=== PATIENT | female | born 1955 | race Hispanic/Latino ===

== ENCOUNTER 2022-01-10 04:52 | Emergency (ER) | payer MEDICARE, OTHER, SELFPAY ==
[2022-01-10] VITALS (60 sets, daily range): BP systolic 109–204; BP diastolic 57–109; PULSE 53–81; RESP 10–20; TEMP 36.4; O2SAT 96–100; BMI 29.2
--- NOTE | 2022-01-10 05:08 | DI.RAD.S_ITS ---
PROCEDURE: XR CHEST 1V INDICATIONS: Chest pain TECHNIQUE: One view of the chest was acquired. COMPARISON: None. FINDINGS: Surgical changes and devices: Median sternotomy wires are seen. Lungs and pleura: Mild pulmonary vascular congestion is seen. No focal infiltrate. No pleural effusions or pneumothorax. Mediastinum: Tortuous thoracic aorta with aortic arch calcifications are noted. Heart size is enlarged. Bones and chest wall: No suspicious bony lesions. Overlying soft tissues appear unremarkable. IMPRESSION: Cardiomegaly and mild congestion. No definite focal infiltrate. No pleural effusion or pneumothorax. No significant discrepancies from preliminary reading. Dictated by: Iftikhar Ann M.D. on 01/10/2022 at 8:11 Approved by: Iftikhar Ann M.D. on 01/10/2022 at 8:13
--- NOTE | 2022-01-10 05:27 | ED.CHESTPAIN ---
HPI - Chest Pain <Jeffry Cordoba, DO - Last Filed: 01/10/22 07:16> General Chief Complaint: Chest Pain Stated Complaint: left shoulder pain Time Seen by Provider: 01/10/22 05:06 Source: patient Mode of arrival: Ambulatory Limitations: no limitations Limitations: no limitations History of Present Illness HPI narrative: Patient is a 66-year-old female. History of hypertension and history of coronary artery disease. She has had a coronary artery bypass graft and that was many years ago and also has had stents placed. She is had left arm pain in the past that has led to her prior coronary interventions. She started to have left-sided shoulder and arm pain several days/weeks ago. Saw her division order analyst. Was given isosorbide and nitroglycerin. They are in the process of getting her a stress test however this has not been scheduled up to this point. She stated that earlier today she started to have shoulder and arm pain that has been consistent. She took 1 nitroglycerin at home without any improvement. No shortness of breath. No cough. No abdominal pain. No nausea vomiting. No lower extremity swelling. Related Data Home Medications Medication Instructions Recorded Confirmed allopurinol 300 mg tablet 300 mg PO DAILY 01/11/22 01/11/22 amlodipine 5 mg tablet 5 mg PO DAILY 01/11/22 01/11/22 aspirin 81 mg capsule 81 mg PO DAILY 01/11/22 01/11/22 atorvastatin 40 mg tablet 40 mg PO BEDTIME 01/11/22 01/11/22 cyanocobalamin (vitamin B-12) 1,000 mcg IM QMONTH 01/11/22 01/11/22 1,000 mcg/mL injection solution furosemide 20 mg tablet 20 mg PO DAILY 01/11/22 01/11/22 isosorbide mononitrate 30 mg 30 mg PO DAILY 01/11/22 01/11/22 tablet,extended release 24 hr nitroglycerin 0.4 mg sublingual 0.4 mg sublingual Q5-15M PRN Chest 01/11/22 01/11/22 tablet Pain potassium chloride 2.5 mEq tablet 10 meq PO DAILY 01/11/22 01/11/22 telmisartan 40 mg tablet 40 mg PO DAILY 01/11/22 01/11/22 Allergies Allergy/AdvReac Type Severity Reaction Status Date / Time benazepril [From Lotensin] Allergy Verified 01/12/22 12:40 hydrochlorothiazide Allergy Verified 01/12/22 12:40 Review of Systems <DO Felicia Chaves Last Filed: 01/10/22 07:16> Constitutional Constitutional: Denies fever(s) Cardiovascular Cardiovascular: Reports as per HPI and Reports system reviewed and no additional complaints, except as documented Respiratory Respiratory: Reports system reviewed and no additional complaints, except as documented Gastrointestinal Gastrointestinal: Reports as per HPI and Reports system reviewed and no additional complaints, except as documented Musculoskeletal Musculoskeletal: Reports system reviewed and no additional complaints, except as documented and Reports as per HPI Integumentary/Breasts Skin/Breast: Reports system reviewed and no additional complaints, except as documented Neurologic Neurologic: Reports system reviewed and no additional complaints, except as documented Hematologic/Lymphatic On Anticoagulants: No Patient History <DO Felicia Chaves Last Filed: 01/10/22 07:16> Medical History Coronary artery disease Hypertension Social History Smoking Status: Never smoker Smoking Status: Never smoker Substance Use Type: does not use Exam <DO Felicia Chaves Last Filed: 01/10/22 07:16> Initial Vital Signs Initial Vital Signs: Vital Signs Temperature 97.5 F L 01/10/22 05:06 Pulse Rate 55 L 01/10/22 05:06 Respiratory Rate 17 01/10/22 05:06 Blood Pressure 185/86 H 01/10/22 05:06 Pulse Oximetry 100 01/10/22 05:06 Oxygen Delivery Method 01/10/22 05:06 Const General: cooperative, healthy appearing, comfortable and No ill appearing [facility] Head: normal to inspection and normocephalic Resp Effort & Inspection: normal respiratory effort Auscultation: clear to auscultation bilaterally Cardio Rate: regular rate Rhythm: regular rhythm GI Palpation: soft Skin General: no rashes or lesions noted Neuro General: patient alert, patient awake, patient oriented x3 and moves all extremities Speech: speech normal Extrem General: normal to inspection and No edema Psych Appearance: grossly normal and well kempt <Cassius Dumont DO - Last Filed: 01/17/22 00:37> Initial Vital Signs Initial Vital Signs: Vital Signs Temperature 97.5 F L 01/10/22 05:06 Pulse Rate 55 L 01/10/22 05:06 Respiratory Rate 17 01/10/22 05:06 Blood Pressure 185/86 H 01/10/22 05:06 Pulse Oximetry 100 01/10/22 05:06 Oxygen Delivery Method 01/10/22 05:06 <Yomaira Dean DO - Last Filed: 01/18/22 08:54> Initial Vital Signs Initial Vital Signs: Vital Signs Temperature 97.5 F L 01/10/22 05:06 Pulse Rate 55 L 01/10/22 05:06 Respiratory Rate 17 01/10/22 05:06 Blood Pressure 185/86 H 01/10/22 05:06 Pulse Oximetry 100 01/10/22 05:06 Oxygen Delivery Method 01/10/22 05:06 <Musa Olmstead MD - Last Filed: 01/12/22 13:47> Initial Vital Signs Initial Vital Signs: Vital Signs Temperature 97.5 F L 01/10/22 05:06 Pulse Rate 55 L 01/10/22 05:06 Respiratory Rate 17 01/10/22 05:06 Blood Pressure 185/86 H 01/10/22 05:06 Pulse Oximetry 100 01/10/22 05:06 Oxygen Delivery Method 01/10/22 05:06 Scores <Jeffry Cordoba DO - Last Filed: 01/10/22 07:16> HEART Score Heart Score history: Moderately Suspicious Heart Score EKG: Non-Specific repolarization disturbance Heart Score Age: > or = 65 years old Heart Score risk factors: > 3 risk factors or hx of atherosclerotic disease Heart Score troponin: < or = to normal limit Heart Score Total: 6 <Cassius Dumont DO - Last Filed: 01/17/22 00:37> HEART Score Heart Score Total: 6 <Yomaira Dean DO - Last Filed: 01/18/22 08:54> HEART Score Heart Score Total: 6 <Musa Olmstead MD - Last Filed: 01/12/22 13:47> HEART Score Heart Score Total: 6 Course <DO Felicia Chaves Last Filed: 01/10/22 07:16> Orders Ordered: Discontinued Medications Amlodipine Besylate (Amlodipine 5 Mg Tablet) 5 mg PO NOW ONE Stop: 01/12/22 11:37 Last Admin: 01/12/22 12:08 Dose: 5 mg Documented By: MADHAVI Aspirin (Aspirin 81 Mg Chew Tab) 324 mg PO NOW ONE Stop: 01/10/22 05:27 Last Admin: 01/10/22 05:40 Dose: 324 mg Documented By: DOMINGO Aspirin (Aspirin 81 Mg Chew Tab) 324 mg PO NOW ONE Stop: 01/10/22 09:34 Last Admin: 01/10/22 10:17 Dose: 324 mg Documented By: NAIF Aspirin (Aspirin Ec 81 Mg Tablet) 81 mg PO NOW ONE Stop: 01/11/22 08:56 Last Admin: 01/11/22 10:01 Dose: 81 mg Documented By: JAMILA Aspirin (Aspirin Ec 81 Mg Tablet) 81 mg PO NOW ONE Stop: 01/12/22 09:54 Last Admin: 01/12/22 10:24 Dose: 81 mg Documented By: MADHAVI Atorvastatin Calcium (Atorvastatin 20 Mg Tablet) 80 mg PO BEDTIME [facility] Last Admin: 01/11/22 20:25 Dose: 40 mg Documented By: Admin: 01/10/22 22:07 Dose: 80 mg Documented By: BURT Atorvastatin Calcium (Atorvastatin 20 Mg Tablet) 40 mg PO NOW ONE Stop: 01/11/22 08:56 Last Admin: 01/11/22 10:02 Dose: 40 mg Documented By: JAMILA Clopidogrel Bisulfate (Clopidogrel 75 Mg Tablet) 75 mg PO NOW ONE Stop: 01/12/22 09:54 Last Admin: 01/12/22 10:24 Dose: 75 mg Documented By: MADHAVI Furosemide (Furosemide 20 Mg Tablet) 20 mg PO NOW ONE Stop: 01/12/22 11:37 Last Admin: 01/12/22 12:08 Dose: 20 mg Documented By: MADHAVI Heparin Sodium (Porcine) (Heparin 5,000 Unit/Ml Vial) 4,000 unit IV NOW ONE Stop: 01/10/22 09:34 Last Admin: 01/10/22 10:15 Dose: 4,000 unit Documented By: NAIF Sodium Chloride (Normal Saline 0.9%) 1,000 mls @ 125 mls/hr IV CONT JORDAN Last Infusion: 01/10/22 18:01 Dose: 0 mls/hr Documented By: Admin: 01/10/22 05:40 Dose: 125 mls/hr Documented By: DOMINGO Heparin Sodium/Dextrose (Heparin Drip) 25,000 unit in 500 mls @ 16.329 mls/hr IV CONT JORDAN; Protocol Last Admin: 01/12/22 02:55 Dose: 9.04 units/kg/hr, 12.3 mls/hr Documented By: Titration: 01/12/22 02:54 Dose: 0 units/kg/hr, 0 mls/hr Documented By: Titration: 01/11/22 00:28 Dose: 9.06 units/kg/hr, 12.329 mls/hr Documented By: Titration: 01/10/22 19:48 Dose: 9.8 units/kg/hr, 13.329 mls/hr Documented By: Titration: 01/10/22 18:38 Dose: 12 units/kg/hr, 16.329 mls/hr Documented By: Admin: 01/10/22 10:15 Dose: 12 units/kg/hr, 16.329 mls/hr Documented By: NAIF Isosorbide Mononitrate (Isosorbide Mononitrate Er 30 Mg Tablet) 30 mg PO NOW ONE Stop: 01/12/22 11:37 Last Admin: 01/12/22 12:08 Dose: 30 mg Documented By: MADHAVI Losartan Potassium (Losartan 50 Mg Tablet) 50 mg PO NOW ONE Stop: 01/12/22 11:39 Last Admin: 01/12/22 12:09 Dose: 50 mg Documented By: MADHAVI Metoprolol Tartrate (Metoprolol Ir 25 Mg Tablet) 12.5 mg PO NOW ONE Stop: 01/12/22 09:54 Last Admin: 01/12/22 10:25 Dose: 12.5 mg Documented By: MADHAVI Morphine Sulfate (Morphine 4 Mg/Ml Inj) 4 mg IV NOW ONE Stop: 01/10/22 06:12 Last Admin: 01/10/22 06:15 Dose: 4 mg Documented By: DOMINGO Morphine Sulfate (Morphine 4 Mg/Ml Inj) 4 mg IV NOW ONE Stop: 01/10/22 21:12 Last Admin: 01/10/22 21:17 Dose: 4 mg Documented By: BURT Morphine Sulfate (Morphine 2 Mg/Ml Inj) 2 mg IV Q5MIN PRN PRN Reason: Chest Pain Last Admin: 01/12/22 03:27 Dose: 2 mg Documented By: Admin: 01/11/22 05:59 Dose: 2 mg Documented By: ANDREY Morphine Sulfate (Morphine 4 Mg/Ml Inj) 4 mg IV NOW ONE Stop: 01/11/22 05:52 Last Admin: 01/11/22 06:56 Dose: Not Given Documented By: DOMINGO Naloxone HCl (Naloxone 0.4 Mg/Ml Vial) 0.2 mg IV Q2MIN PRN PRN Reason: Opiate Reversal Nitroglycerin (Nitroglycerin Oint 1 Inch/Gm Oint...G.) 0.5 inch TOP NOW ONE Stop: 01/10/22 05:27 Last Admin: 01/10/22 05:39 Dose: 0.5 inch Documented By: DOMINGO Nitroglycerin (Nitroglycerin Oint 1 Inch/Gm Oint...G.) 0.5 inch TOP NOW ONE Stop: 01/10/22 20:50 Last Admin: 01/10/22 20:52 Dose: 0.5 inch Documented By: BURT Potassium Chloride (Potassium Chloride 10 Meq Tab) 10 meq PO NOW ONE Stop: 01/12/22 11:38 Last Admin: 01/12/22 12:08 Dose: 10 meq Documented By: MADHAVI Vital Signs Vital signs: Vital Signs - 8 hr 01/12/22 06:00 01/12/22 06:30 01/12/22 07:00 Temperature Pulse Rate 54 L 50 L 54 L Respiratory Rate 13 13 14 Blood Pressure Pulse Oximetry 95 96 98 01/12/22 07:30 01/12/22 07:35 01/12/22 07:35 Temperature Pulse Rate 50 L 58 L Respiratory Rate 12 12 Blood Pressure 170/78 H Pulse Oximetry 96 98 01/12/22 08:00 01/12/22 08:04 01/12/22 08:01 Temperature 99.1 F Pulse Rate 57 L Respiratory Rate 12 Blood Pressure 161/72 H Pulse Oximetry 95 01/12/22 09:00 01/12/22 09:30 01/12/22 10:00 Temperature Pulse Rate 61 63 61 Respiratory Rate 20 14 19 Blood Pressure Pulse Oximetry 99 98 98 01/12/22 10:01 01/12/22 12:09 01/12/22 11:00 Temperature Pulse Rate 60 63 Respiratory Rate 27 H Blood Pressure 156/73 H 156/73 H Pulse Oximetry 98 01/12/22 11:00 01/12/22 12:15 01/12/22 12:15 Temperature Pulse Rate 63 57 L Respiratory Rate 19 20 Blood Pressure 130/62 Pulse Oximetry 98 98 01/12/22 12:30 01/12/22 13:00 Temperature Pulse Rate 53 L 64 Respiratory Rate 23 32 H Blood Pressure Pulse Oximetry 98 <Cassius Dumont DO - Last Filed: 01/17/22 00:37> Orders Ordered: Discontinued Medications Amlodipine Besylate (Amlodipine 5 Mg Tablet) 5 mg PO NOW ONE Stop: 01/12/22 11:37 Last Admin: 01/12/22 12:08 Dose: 5 mg Documented By: MADHAVI Aspirin (Aspirin 81 Mg Chew Tab) 324 mg PO NOW ONE Stop: 01/10/22 05:27 Last Admin: 01/10/22 05:40 Dose: 324 mg Documented By: DOMINGO Aspirin (Aspirin 81 Mg Chew Tab) 324 mg PO NOW ONE Stop: 01/10/22 09:34 Last Admin: 01/10/22 10:17 Dose: 324 mg Documented By: NAIF Aspirin (Aspirin Ec 81 Mg Tablet) 81 mg PO NOW ONE Stop: 01/11/22 08:56 Last Admin: 01/11/22 10:01 Dose: 81 mg Documented By: JAMILA Aspirin (Aspirin Ec 81 Mg Tablet) 81 mg PO NOW ONE Stop: 01/12/22 09:54 Last Admin: 01/12/22 10:24 Dose: 81 mg Documented By: MADHAVI Atorvastatin Calcium (Atorvastatin 20 Mg Tablet) 80 mg PO BEDTIME [facility] Last Admin: 01/11/22 20:25 Dose: 40 mg Documented By: Admin: 01/10/22 22:07 Dose: 80 mg Documented By: BURT Atorvastatin Calcium (Atorvastatin 20 Mg Tablet) 40 mg PO NOW ONE Stop: 01/11/22 08:56 Last Admin: 01/11/22 10:02 Dose: 40 mg Documented By: JAMILA Clopidogrel Bisulfate (Clopidogrel 75 Mg Tablet) 75 mg PO NOW ONE Stop: 01/12/22 09:54 Last Admin: 01/12/22 10:24 Dose: 75 mg Documented By: MADHAVI Furosemide (Furosemide 20 Mg Tablet) 20 mg PO NOW ONE Stop: 01/12/22 11:37 Last Admin: 01/12/22 12:08 Dose: 20 mg Documented By: MADHAVI Heparin Sodium (Porcine) (Heparin 5,000 Unit/Ml Vial) 4,000 unit IV NOW ONE Stop: 01/10/22 09:34 Last Admin: 01/10/22 10:15 Dose: 4,000 unit Documented By: NAIF Sodium Chloride (Normal Saline 0.9%) 1,000 mls @ 125 mls/hr IV CONT JORDAN Last Infusion: 01/10/22 18:01 Dose: 0 mls/hr Documented By: Admin: 01/10/22 05:40 Dose: 125 mls/hr Documented By: DOMINGO Heparin Sodium/Dextrose (Heparin Drip) 25,000 unit in 500 mls @ 16.329 mls/hr IV CONT JORDAN; Protocol Last Admin: 01/12/22 02:55 Dose: 9.04 units/kg/hr, 12.3 mls/hr Documented By: Titration: 01/12/22 02:54 Dose: 0 units/kg/hr, 0 mls/hr Documented By: Titration: 01/11/22 00:28 Dose: 9.06 units/kg/hr, 12.329 mls/hr Documented By: Titration: 01/10/22 19:48 Dose: 9.8 units/kg/hr, 13.329 mls/hr Documented By: Titration: 01/10/22 18:38 Dose: 12 units/kg/hr, 16.329 mls/hr Documented By: Admin: 01/10/22 10:15 Dose: 12 units/kg/hr, 16.329 mls/hr Documented By: NAIF Isosorbide Mononitrate (Isosorbide Mononitrate Er 30 Mg Tablet) 30 mg PO NOW ONE Stop: 01/12/22 11:37 Last Admin: 01/12/22 12:08 Dose: 30 mg Documented By: MADHAVI Losartan Potassium (Losartan 50 Mg Tablet) 50 mg PO NOW ONE Stop: 01/12/22 11:39 Last Admin: 01/12/22 12:09 Dose: 50 mg Documented By: MADHAVI Metoprolol Tartrate (Metoprolol Ir 25 Mg Tablet) 12.5 mg PO NOW ONE Stop: 01/12/22 09:54 Last Admin: 01/12/22 10:25 Dose: 12.5 mg Documented By: MADHAVI Morphine Sulfate (Morphine 4 Mg/Ml Inj) 4 mg IV NOW ONE Stop: 01/10/22 06:12 Last Admin: 01/10/22 06:15 Dose: 4 mg Documented By: DKB Morphine Sulfate (Morphine 4 Mg/Ml Inj) 4 mg IV NOW ONE Stop: 01/10/22 21:12 Last Admin: 01/10/22 21:17 Dose: 4 mg Documented By: BURT Morphine Sulfate (Morphine 2 Mg/Ml Inj) 2 mg IV Q5MIN PRN PRN Reason: Chest Pain Last Admin: 01/12/22 03:27 Dose: 2 mg Documented By: Admin: 01/11/22 05:59 Dose: 2 mg Documented By: ANDREY Morphine Sulfate (Morphine 4 Mg/Ml Inj) 4 mg IV NOW ONE Stop: 01/11/22 05:52 Last Admin: 01/11/22 06:56 Dose: Not Given Documented By: DOMINGO Naloxone HCl (Naloxone 0.4 Mg/Ml Vial) 0.2 mg IV Q2MIN PRN PRN Reason: Opiate Reversal Nitroglycerin (Nitroglycerin Oint 1 Inch/Gm Oint...G.) 0.5 inch TOP NOW ONE Stop: 01/10/22 05:27 Last Admin: 01/10/22 05:39 Dose: 0.5 inch Documented By: DOMINGO Nitroglycerin (Nitroglycerin Oint 1 Inch/Gm Oint...G.) 0.5 inch TOP NOW ONE Stop: 01/10/22 20:50 Last Admin: 01/10/22 20:52 Dose: 0.5 inch Documented By: BURT Potassium Chloride (Potassium Chloride 10 Meq Tab) 10 meq PO NOW ONE Stop: 01/12/22 11:38 Last Admin: 01/12/22 12:08 Dose: 10 meq Documented By: MADHAVI Vital Signs Vital signs: Vital Signs - 8 hr 01/12/22 06:00 01/12/22 06:30 01/12/22 07:00 Temperature Pulse Rate 54 L 50 L 54 L Respiratory Rate 13 13 14 Blood Pressure Pulse Oximetry 95 96 98 01/12/22 07:30 01/12/22 07:35 01/12/22 07:35 Temperature Pulse Rate 50 L 58 L Respiratory Rate 12 12 Blood Pressure 170/78 H Pulse Oximetry 96 98 01/12/22 08:00 01/12/22 08:04 01/12/22 08:01 Temperature 99.1 F Pulse Rate 57 L Respiratory Rate 12 Blood Pressure 161/72 H Pulse Oximetry 95 01/12/22 09:00 01/12/22 09:30 01/12/22 10:00 Temperature Pulse Rate 61 63 61 Respiratory Rate 20 14 19 Blood Pressure Pulse Oximetry 99 98 98 01/12/22 10:01 01/12/22 12:09 01/12/22 11:00 Temperature Pulse Rate 60 63 Respiratory Rate 27 H Blood Pressure 156/73 H 156/73 H Pulse Oximetry 98 01/12/22 11:00 01/12/22 12:15 01/12/22 12:15 Temperature Pulse Rate 63 57 L Respiratory Rate 19 20 Blood Pressure 130/62 Pulse Oximetry 98 98 01/12/22 12:30 01/12/22 13:00 Temperature Pulse Rate 53 L 64 Respiratory Rate 23 32 H Blood Pressure Pulse Oximetry 98 <Yomaira Dean, - Last Filed: 01/18/22 08:54> Orders Ordered: Discontinued Medications Amlodipine Besylate (Amlodipine 5 Mg Tablet) 5 mg PO NOW ONE Stop: 01/12/22 11:37 Last Admin: 01/12/22 12:08 Dose: 5 mg Documented By: MADHAVI Aspirin (Aspirin 81 Mg Chew Tab) 324 mg PO NOW ONE Stop: 01/10/22 05:27 Last Admin: 01/10/22 05:40 Dose: 324 mg Documented By: DOMINGO Aspirin (Aspirin 81 Mg Chew Tab) 324 mg PO NOW ONE Stop: 01/10/22 09:34 Last Admin: 01/10/22 10:17 Dose: 324 mg Documented By: NAIF Aspirin (Aspirin Ec 81 Mg Tablet) 81 mg PO NOW ONE Stop: 01/11/22 08:56 Last Admin: 01/11/22 10:01 Dose: 81 mg Documented By: JAMILA Aspirin (Aspirin Ec 81 Mg Tablet) 81 mg PO NOW ONE Stop: 01/12/22 09:54 Last Admin: 01/12/22 10:24 Dose: 81 mg Documented By: MADHAVI Atorvastatin Calcium (Atorvastatin 20 Mg Tablet) 80 mg PO BEDTIME [facility] Last Admin: 01/11/22 20:25 Dose: 40 mg Documented By: Admin: 01/10/22 22:07 Dose: 80 mg Documented By: NR Atorvastatin Calcium (Atorvastatin 20 Mg Tablet) 40 mg PO NOW ONE Stop: 01/11/22 08:56 Last Admin: 01/11/22 10:02 Dose: 40 mg Documented By: JAMILA Clopidogrel Bisulfate (Clopidogrel 75 Mg Tablet) 75 mg PO NOW ONE Stop: 01/12/22 09:54 Last Admin: 01/12/22 10:24 Dose: 75 mg Documented By: MADHAVI Furosemide (Furosemide 20 Mg Tablet) 20 mg PO NOW ONE Stop: 01/12/22 11:37 Last Admin: 01/12/22 12:08 Dose: 20 mg Documented By: MADHAVI Heparin Sodium (Porcine) (Heparin 5,000 Unit/Ml Vial) 4,000 unit IV NOW ONE Stop: 01/10/22 09:34 Last Admin: 01/10/22 10:15 Dose: 4,000 unit Documented By: NAIF Sodium Chloride (Normal Saline 0.9%) 1,000 mls @ 125 mls/hr IV CONT JORDAN Last Infusion: 01/10/22 18:01 Dose: 0 mls/hr Documented By: Admin: 01/10/22 05:40 Dose: 125 mls/hr Documented By: DOMINGO Heparin Sodium/Dextrose (Heparin Drip) 25,000 unit in 500 mls @ 16.329 mls/hr IV CONT JORDAN; Protocol Last Admin: 01/12/22 02:55 Dose: 9.04 units/kg/hr, 12.3 mls/hr Documented By: Titration: 01/12/22 02:54 Dose: 0 units/kg/hr, 0 mls/hr Documented By: Titration: 01/11/22 00:28 Dose: 9.06 units/kg/hr, 12.329 mls/hr Documented By: Titration: 01/10/22 19:48 Dose: 9.8 units/kg/hr, 13.329 mls/hr Documented By: Titration: 01/10/22 18:38 Dose: 12 units/kg/hr, 16.329 mls/hr Documented By: Admin: 01/10/22 10:15 Dose: 12 units/kg/hr, 16.329 mls/hr Documented By: NAIF Isosorbide Mononitrate (Isosorbide Mononitrate Er 30 Mg Tablet) 30 mg PO NOW ONE Stop: 01/12/22 11:37 Last Admin: 01/12/22 12:08 Dose: 30 mg Documented By: MADHAVI Losartan Potassium (Losartan 50 Mg Tablet) 50 mg PO NOW ONE Stop: 01/12/22 11:39 Last Admin: 01/12/22 12:09 Dose: 50 mg Documented By: MADHAVI Metoprolol Tartrate (Metoprolol Ir 25 Mg Tablet) 12.5 mg PO NOW ONE Stop: 01/12/22 09:54 Last Admin: 01/12/22 10:25 Dose: 12.5 mg Documented By: MADHAVI Morphine Sulfate (Morphine 4 Mg/Ml Inj) 4 mg IV NOW ONE Stop: 01/10/22 06:12 Last Admin: 01/10/22 06:15 Dose: 4 mg Documented By: DOMINGO Morphine Sulfate (Morphine 4 Mg/Ml Inj) 4 mg IV NOW ONE Stop: 01/10/22 21:12 Last Admin: 01/10/22 21:17 Dose: 4 mg Documented By: NR Morphine Sulfate (Morphine 2 Mg/Ml Inj) 2 mg IV Q5MIN PRN PRN Reason: Chest Pain Last Admin: 01/12/22 03:27 Dose: 2 mg Documented By: Admin: 01/11/22 05:59 Dose: 2 mg Documented By: EB Morphine Sulfate (Morphine 4 Mg/Ml Inj) 4 mg IV NOW ONE Stop: 01/11/22 05:52 Last Admin: 01/11/22 06:56 Dose: Not Given Documented By: DOMINGO Naloxone HCl (Naloxone 0.4 Mg/Ml Vial) 0.2 mg IV Q2MIN PRN PRN Reason: Opiate Reversal Nitroglycerin (Nitroglycerin Oint 1 Inch/Gm Oint...G.) 0.5 inch TOP NOW ONE Stop: 01/10/22 05:27 Last Admin: 01/10/22 05:39 Dose: 0.5 inch Documented By: DOMINGO Nitroglycerin (Nitroglycerin Oint 1 Inch/Gm Oint...G.) 0.5 inch TOP NOW ONE Stop: 01/10/22 20:50 Last Admin: 01/10/22 20:52 Dose: 0.5 inch Documented By: NR Potassium Chloride (Potassium Chloride 10 Meq Tab) 10 meq PO NOW ONE Stop: 01/12/22 11:38 Last Admin: 01/12/22 12:08 Dose: 10 meq Documented By: MADHAVI Reevaluation(s) Reevaluation #1: Patient chest pain had recurred. She states initially improved after morphine and not nitro. Nitro placed again and patient given dose of morphine and improved symptoms. Vital Signs Vital signs: Vital Signs - 8 hr 01/12/22 06:00 01/12/22 06:30 01/12/22 07:00 Temperature Pulse Rate 54 L 50 L 54 L Respiratory Rate 13 13 14 Blood Pressure Pulse Oximetry 95 96 98 01/12/22 07:30 01/12/22 07:35 01/12/22 07:35 Temperature Pulse Rate 50 L 58 L Respiratory Rate 12 12 Blood Pressure 170/78 H Pulse Oximetry 96 98 01/12/22 08:00 01/12/22 08:04 01/12/22 08:01 Temperature 99.1 F Pulse Rate 57 L Respiratory Rate 12 Blood Pressure 161/72 H Pulse Oximetry 95 01/12/22 09:00 01/12/22 09:30 01/12/22 10:00 Temperature Pulse Rate 61 63 61 Respiratory Rate 20 14 19 Blood Pressure Pulse Oximetry 99 98 98 01/12/22 10:01 01/12/22 12:09 01/12/22 11:00 Temperature Pulse Rate 60 63 Respiratory Rate 27 H Blood Pressure 156/73 H 156/73 H Pulse Oximetry 98 01/12/22 11:00 01/12/22 12:15 01/12/22 12:15 Temperature Pulse Rate 63 57 L Respiratory Rate 19 20 Blood Pressure 130/62 Pulse Oximetry 98 98 01/12/22 12:30 01/12/22 13:00 Temperature Pulse Rate 53 L 64 Respiratory Rate 23 32 H Blood Pressure Pulse Oximetry 98 <uMsa Olmstead MD - Last Filed: 01/12/22 13:47> Orders Ordered: Discontinued Medications Amlodipine Besylate (Amlodipine 5 Mg Tablet) 5 mg PO NOW ONE Stop: 01/12/22 11:37 Last Admin: 01/12/22 12:08 Dose: 5 mg Documented By: MADHAVI Aspirin (Aspirin 81 Mg Chew Tab) 324 mg PO NOW ONE Stop: 01/10/22 05:27 Last Admin: 01/10/22 05:40 Dose: 324 mg Documented By: DOMINGO Aspirin (Aspirin 81 Mg Chew Tab) 324 mg PO NOW ONE Stop: 01/10/22 09:34 Last Admin: 01/10/22 10:17 Dose: 324 mg Documented By: NAIF Aspirin (Aspirin Ec 81 Mg Tablet) 81 mg PO NOW ONE Stop: 01/11/22 08:56 Last Admin: 01/11/22 10:01 Dose: 81 mg Documented By: CTS Aspirin (Aspirin Ec 81 Mg Tablet) 81 mg PO NOW ONE Stop: 01/12/22 09:54 Last Admin: 01/12/22 10:24 Dose: 81 mg Documented By: MADHAVI Atorvastatin Calcium (Atorvastatin 20 Mg Tablet) 80 mg PO BEDTIME [facility] Last Admin: 01/11/22 20:25 Dose: 40 mg Documented By: Admin: 01/10/22 22:07 Dose: 80 mg Documented By: NR Atorvastatin Calcium (Atorvastatin 20 Mg Tablet) 40 mg PO NOW ONE Stop: 01/11/22 08:56 Last Admin: 01/11/22 10:02 Dose: 40 mg Documented By: CTS Clopidogrel Bisulfate (Clopidogrel 75 Mg Tablet) 75 mg PO NOW ONE Stop: 01/12/22 09:54 Last Admin: 01/12/22 10:24 Dose: 75 mg Documented By: RLS Furosemide (Furosemide 20 Mg Tablet) 20 mg PO NOW ONE Stop: 01/12/22 11:37 Last Admin: 01/12/22 12:08 Dose: 20 mg Documented By: MADHAVI Heparin Sodium (Porcine) (Heparin 5,000 Unit/Ml Vial) 4,000 unit IV NOW ONE Stop: 01/10/22 09:34 Last Admin: 01/10/22 10:15 Dose: 4,000 unit Documented By: NAIF Sodium Chloride (Normal Saline 0.9%) 1,000 mls @ 125 mls/hr IV CONT JORDAN Last Infusion: 01/10/22 18:01 Dose: 0 mls/hr Documented By: Admin: 01/10/22 05:40 Dose: 125 mls/hr Documented By: DOMINGO Heparin Sodium/Dextrose (Heparin Drip) 25,000 unit in 500 mls @ 16.329 mls/hr IV CONT J[place]; Protocol Last Admin: 01/12/22 02:55 Dose: 9.04 units/kg/hr, 12.3 mls/hr Documented By: Titration: 01/12/22 02:54 Dose: 0 units/kg/hr, 0 mls/hr Documented By: Titration: 01/11/22 00:28 Dose: 9.06 units/kg/hr, 12.329 mls/hr Documented By: Titration: 01/10/22 19:48 Dose: 9.8 units/kg/hr, 13.329 mls/hr Documented By: Titration: 01/10/22 18:38 Dose: 12 units/kg/hr, 16.329 mls/hr Documented By: Admin: 01/10/22 10:15 Dose: 12 units/kg/hr, 16.329 mls/hr Documented By: NAIF Isosorbide Mononitrate (Isosorbide Mononitrate Er 30 Mg Tablet) 30 mg PO NOW ONE Stop: 01/12/22 11:37 Last Admin: 01/12/22 12:08 Dose: 30 mg Documented By: MADHAVI Losartan Potassium (Losartan 50 Mg Tablet) 50 mg PO NOW ONE Stop: 01/12/22 11:39 Last Admin: 01/12/22 12:09 Dose: 50 mg Documented By: MADHAVI Metoprolol Tartrate (Metoprolol Ir 25 Mg Tablet) 12.5 mg PO NOW ONE Stop: 01/12/22 09:54 Last Admin: 01/12/22 10:25 Dose: 12.5 mg Documented By: MADHAVI Morphine Sulfate (Morphine 4 Mg/Ml Inj) 4 mg IV NOW ONE Stop: 01/10/22 06:12 Last Admin: 01/10/22 06:15 Dose: 4 mg Documented By: DOMINGO Morphine Sulfate (Morphine 4 Mg/Ml Inj) 4 mg IV NOW ONE Stop: 01/10/22 21:12 Last Admin: 01/10/22 21:17 Dose: 4 mg Documented By: BURT Morphine Sulfate (Morphine 2 Mg/Ml Inj) 2 mg IV Q5MIN PRN PRN Reason: Chest Pain Last Admin: 01/12/22 03:27 Dose: 2 mg Documented By: Admin: 01/11/22 05:59 Dose: 2 mg Documented By: ANDREY Morphine Sulfate (Morphine 4 Mg/Ml Inj) 4 mg IV NOW ONE Stop: 01/11/22 05:52 Last Admin: 01/11/22 06:56 Dose: Not Given Documented By: DOMINGO Naloxone HCl (Naloxone 0.4 Mg/Ml Vial) 0.2 mg IV Q2MIN PRN PRN Reason: Opiate Reversal Nitroglycerin (Nitroglycerin Oint 1 Inch/Gm Oint...G.) 0.5 inch TOP NOW ONE Stop: 01/10/22 05:27 Last Admin: 01/10/22 05:39 Dose: 0.5 inch Documented By: DOMINGO Nitroglycerin (Nitroglycerin Oint 1 Inch/Gm Oint...G.) 0.5 inch TOP NOW ONE Stop: 01/10/22 20:50 Last Admin: 01/10/22 20:52 Dose: 0.5 inch Documented By: BURT Potassium Chloride (Potassium Chloride 10 Meq Tab) 10 meq PO NOW ONE Stop: 01/12/22 11:38 Last Admin: 01/12/22 12:08 Dose: 10 meq Documented By: MADHAVI Vital Signs Vital signs: Vital Signs - 8 hr 01/12/22 06:00 01/12/22 06:30 01/12/22 07:00 Temperature Pulse Rate 54 L 50 L 54 L Respiratory Rate 13 13 14 Blood Pressure Pulse Oximetry 95 96 98 01/12/22 07:30 01/12/22 07:35 01/12/22 07:35 Temperature Pulse Rate 50 L 58 L Respiratory Rate 12 12 Blood Pressure 170/78 H Pulse Oximetry 96 98 01/12/22 08:00 01/12/22 08:04 01/12/22 08:01 Temperature 99.1 F Pulse Rate 57 L Respiratory Rate 12 Blood Pressure 161/72 H Pulse Oximetry 95 01/12/22 09:00 01/12/22 09:30 01/12/22 10:00 Temperature Pulse Rate 61 63 61 Respiratory Rate 20 14 19 Blood Pressure Pulse Oximetry 99 98 98 01/12/22 10:01 01/12/22 12:09 01/12/22 11:00 Temperature Pulse Rate 60 63 Respiratory Rate 27 H Blood Pressure 156/73 H 156/73 H Pulse Oximetry 98 01/12/22 11:00 01/12/22 12:15 01/12/22 12:15 Temperature Pulse Rate 63 57 L Respiratory Rate 19 20 Blood Pressure 130/62 Pulse Oximetry 98 98 01/12/22 12:30 01/12/22 13:00 Temperature Pulse Rate 53 L 64 Respiratory Rate 23 32 H Blood Pressure Pulse Oximetry 98 MDM - Chest Pain <Jeffry Cordoba DO - Last Filed: 01/10/22 07:16> Lab Data Attestation: I reviewed the patient's lab results. Result diagrams: 01/12/22 05:56 01/12/22 05:56 Labs: Lab Results 01/10/22 01/10/22 01/10/22 Range/Units 05:21 05:21 05:26 WBC 9.2 (4.5-11.0) X10^3/uL RBC 4.33 (4.0-5.2) X10^6/uL Hgb 13.5 (12.0-16.0) g/dL Hct 40.0 (36-46) % MCV 92.3 (80-100) fL MCH 31.3 (26-34) PG MCHC 33.9 (30-36) % RDW 14.3 (11.6-14.8) % Plt Count 211 (150-400) X10^3/uL Neut % (Auto) 76.9 H (50-75) % Lymph % (Auto) 17.1 L (25-40) % [place] % (Auto) 4.6 (3-14) % Eos % (Auto) 1.0 L (2-4) % Baso % (Auto) 0.4 (0-2) % Neut # (Auto) 7100 H (8101-0136) /uL Lymph # (Auto) 1600 (8480-3909) /uL [place] # (Auto) 400 (0-900) /uL Eos # (Auto) 100 (0-450) /uL Baso # (Auto) 0 (0-100) /uL PT 12.1 (10.1-12.7) SECONDS INR 1.1 (0.9-1.3) APTT 30 (26.4-36.2) SECONDS D-Dimer (<230) ng/mL Sodium (137-145) mmol/L Potassium (3.4-5.1) mmol/L Chloride (98-107) mmol/L Carbon Dioxide (22-32) mmol/L BUN (7-17) mg/dL Creatinine (0.52-1.04) mg/dL Estimated GFR (>60) mL/min BUN/Creatinine Ratio (6-22) Glucose (80-110) mg/dL Calcium (8.4-10.2) mg/dL Magnesium (1.6-2.3) mg/dL Total Bilirubin (0.2-1.3) mg/dL AST (14-36) IU/L ALT (<35) IU/L Alkaline Phosphatase (38-126) U/L Total Creatine Kinase (30-135) U/L CK-MB (CK-2) (<2.37) ng/mL CK-MB (CK-2) Rel Index (1.5-5.0) % Troponin I (0.01-0.034) ng/mL Total Protein (6.3-8.2) g/dL Albumin (3.5-5.0) g/dL Globulin (1.7-4.1) g/dL Albumin/Globulin Ratio (1.0-2.8) Lipase (23-300) U/L SARS-CoV-2 (PCR) Positive H (Negative) 01/10/22 01/10/22 01/10/22 Range/Units 05:56 05:56 08:05 WBC (4.5-11.0) X10^3/uL RBC (4.0-5.2) X10^6/uL Hgb (12.0-16.0) g/dL Hct (36-46) % MCV (80-100) fL MCH (26-34) PG MCHC (30-36) % RDW (11.6-14.8) % Plt Count (150-400) X10^3/uL Neut % (Auto) (50-75) % Lymph % (Auto) (25-40) % [place] % (Auto) (3-14) % Eos % (Auto) (2-4) % Baso % (Auto) (0-2) % Neut # (Auto) (0709-5760) /uL Lymph # (Auto) (5790-8598) /uL [place] # (Auto) (0-900) /uL Eos # (Auto) (0-450) /uL Baso # (Auto) (0-100) /uL PT (10.1-12.7) SECONDS INR (0.9-1.3) APTT (26.4-36.2) SECONDS D-Dimer (<230) ng/mL Sodium 138 (137-145) mmol/L Potassium 3.5 (3.4-5.1) mmol/L Chloride 100 (98-107) mmol/L Carbon Dioxide 28 (22-32) mmol/L BUN 14 (7-17) mg/dL Creatinine 0.79 (0.52-1.04) mg/dL Estimated GFR > 60 (>60) mL/min BUN/Creatinine Ratio 17.7 (6-22) Glucose 210 H (80-110) mg/dL Calcium 8.5 (8.4-10.2) mg/dL Magnesium 2.0 (1.6-2.3) mg/dL Total Bilirubin 0.4 (0.2-1.3) mg/dL AST 34 (14-36) IU/L ALT 31 (<35) IU/L Alkaline Phosphatase 64 (38-126) U/L Total Creatine Kinase 123 119 (30-135) U/L CK-MB (CK-2) 1.11 2.47 H D (<2.37) ng/mL CK-MB (CK-2) Rel Index 0.9 L 2.1 (1.5-5.0) % Troponin I 0.039 H 0.115 H (0.01-0.034) ng/mL Total Protein 7.7 (6.3-8.2) g/dL Albumin 4.2 (3.5-5.0) g/dL Globulin 3.5 (1.7-4.1) g/dL Albumin/Globulin Ratio 1.2 (1.0-2.8) Lipase 61 (23-300) U/L SARS-CoV-2 (PCR) (Negative) 01/10/22 01/10/22 01/10/22 Range/Units 10:12 17:35 21:20 WBC (4.5-11.0) X10^3/uL RBC (4.0-5.2) X10^6/uL Hgb (12.0-16.0) g/dL Hct (36-46) % MCV (80-100) fL MCH (26-34) PG MCHC (30-36) % RDW (11.6-14.8) % Plt Count (150-400) X10^3/uL Neut % (Auto) (50-75) % Lymph % (Auto) (25-40) % [place] % (Auto) (3-14) % Eos % (Auto) (2-4) % Baso % (Auto) (0-2) % Neut # (Auto) (7989-5726) /uL Lymph # (Auto) (8217-4894) /uL [place] # (Auto) (0-900) /uL Eos # (Auto) (0-450) /uL Baso # (Auto) (0-100) /uL PT (10.1-12.7) SECONDS INR (0.9-1.3) APTT 33 138 H* D (26.4-36.2) SECONDS D-Dimer (<230) ng/mL Sodium (137-145) mmol/L Potassium (3.4-5.1) mmol/L Chloride (98-107) mmol/L Carbon Dioxide (22-32) mmol/L BUN (7-17) mg/dL Creatinine (0.52-1.04) mg/dL Estimated GFR (>60) mL/min BUN/Creatinine Ratio (6-22) Glucose (80-110) mg/dL Calcium (8.4-10.2) mg/dL Magnesium (1.6-2.3) mg/dL Total Bilirubin (0.2-1.3) mg/dL AST (14-36) IU/L ALT (<35) IU/L Alkaline Phosphatase (38-126) U/L Total Creatine Kinase (30-135) U/L CK-MB (CK-2) (<2.37) ng/mL CK-MB (CK-2) Rel Index (1.5-5.0) % Troponin I 0.524 H* (0.01-0.034) ng/mL Total Protein (6.3-8.2) g/dL Albumin (3.5-5.0) g/dL Globulin (1.7-4.1) g/dL Albumin/Globulin Ratio (1.0-2.8) Lipase (23-300) U/L SARS-CoV-2 (PCR) (Negative) 01/10/22 01/11/22 01/11/22 Range/Units 23:38 05:50 05:50 WBC (4.5-11.0) X10^3/uL RBC (4.0-5.2) X10^6/uL Hgb (12.0-16.0) g/dL Hct (36-46) % MCV (80-100) fL MCH (26-34) PG MCHC (30-36) % RDW (11.6-14.8) % Plt Count (150-400) X10^3/uL Neut % (Auto) (50-75) % Lymph % (Auto) (25-40) % [place] % (Auto) (3-14) % Eos % (Auto) (2-4) % Baso % (Auto) (0-2) % Neut # (Auto) (4251-8671) /uL Lymph # (Auto) (0447-7933) /uL [place] # (Auto) (0-900) /uL Eos # (Auto) (0-450) /uL Baso # (Auto) (0-100) /uL PT (10.1-12.7) SECONDS INR (0.9-1.3) APTT 88 H* D 65 H D (26.4-36.2) SECONDS D-Dimer 211 (<230) ng/mL Sodium (137-145) mmol/L Potassium (3.4-5.1) mmol/L Chloride (98-107) mmol/L Carbon Dioxide (22-32) mmol/L BUN (7-17) mg/dL Creatinine (0.52-1.04) mg/dL Estimated GFR (>60) mL/min BUN/Creatinine Ratio (6-22) Glucose (80-110) mg/dL Calcium (8.4-10.2) mg/dL Magnesium (1.6-2.3) mg/dL Total Bilirubin (0.2-1.3) mg/dL AST (14-36) IU/L ALT (<35) IU/L Alkaline Phosphatase (38-126) U/L Total Creatine Kinase (30-135) U/L CK-MB (CK-2) (<2.37) ng/mL CK-MB (CK-2) Rel Index (1.5-5.0) % Troponin I (0.01-0.034) ng/mL Total Protein (6.3-8.2) g/dL Albumin (3.5-5.0) g/dL Globulin (1.7-4.1) g/dL Albumin/Globulin Ratio (1.0-2.8) Lipase (23-300) U/L SARS-CoV-2 (PCR) (Negative) 01/11/22 01/11/22 01/11/22 Range/Units 06:00 06:00 11:25 WBC (4.5-11.0) X10^3/uL RBC (4.0-5.2) X10^6/uL Hgb 13.3 (12.0-16.0) g/dL Hct 39.5 (36-46) % MCV (80-100) fL MCH (26-34) PG MCHC (30-36) % RDW (11.6-14.8) % Plt Count (150-400) X10^3/uL Neut % (Auto) (50-75) % Lymph % (Auto) (25-40) % [place] % (Auto) (3-14) % Eos % (Auto) (2-4) % Baso % (Auto) (0-2) % Neut # (Auto) (4534-7689) /uL Lymph # (Auto) (4830-8316) /uL [place] # (Auto) (0-900) /uL Eos # (Auto) (0-450) /uL Baso # (Auto) (0-100) /uL PT (10.1-12.7) SECONDS INR (0.9-1.3) APTT 72 H (26.4-36.2) SECONDS D-Dimer (<230) ng/mL Sodium (137-145) mmol/L Potassium (3.4-5.1) mmol/L Chloride (98-107) mmol/L Carbon Dioxide (22-32) mmol/L BUN (7-17) mg/dL Creatinine (0.52-1.04) mg/dL Estimated GFR (>60) mL/min BUN/Creatinine Ratio (6-22) Glucose (80-110) mg/dL Calcium (8.4-10.2) mg/dL Magnesium (1.6-2.3) mg/dL Total Bilirubin (0.2-1.3) mg/dL AST (14-36) IU/L ALT (<35) IU/L Alkaline Phosphatase (38-126) U/L Total Creatine Kinase (30-135) U/L CK-MB (CK-2) (<2.37) ng/mL CK-MB (CK-2) Rel Index (1.5-5.0) % Troponin I 0.424 H* (0.01-0.034) ng/mL Total Protein (6.3-8.2) g/dL Albumin (3.5-5.0) g/dL Globulin (1.7-4.1) g/dL Albumin/Globulin Ratio (1.0-2.8) Lipase (23-300) U/L SARS-CoV-2 (PCR) (Negative) 01/11/22 01/12/22 01/12/22 Range/Units 16:45 05:45 05:56 WBC (4.5-11.0) X10^3/uL RBC (4.0-5.2) X10^6/uL Hgb 13.5 (12.0-16.0) g/dL Hct 39.3 (36-46) % MCV (80-100) fL MCH (26-34) PG MCHC (30-36) % RDW (11.6-14.8) % Plt Count (150-400) X10^3/uL Neut % (Auto) (50-75) % Lymph % (Auto) (25-40) % [place] % (Auto) (3-14) % Eos % (Auto) (2-4) % Baso % (Auto) (0-2) % Neut # (Auto) (7562-5006) /uL Lymph # (Auto) (6703-5882) /uL [place] # (Auto) (0-900) /uL Eos # (Auto) (0-450) /uL Baso # (Auto) (0-100) /uL PT (10.1-12.7) SECONDS INR (0.9-1.3) APTT 57 H D (26.4-36.2) SECONDS D-Dimer (<230) ng/mL Sodium (137-145) mmol/L Potassium (3.4-5.1) mmol/L Chloride (98-107) mmol/L Carbon Dioxide (22-32) mmol/L BUN (7-17) mg/dL Creatinine (0.52-1.04) mg/dL Estimated GFR (>60) mL/min BUN/Creatinine Ratio (6-22) Glucose (80-110) mg/dL Calcium (8.4-10.2) mg/dL Magnesium (1.6-2.3) mg/dL Total Bilirubin (0.2-1.3) mg/dL AST (14-36) IU/L ALT (<35) IU/L Alkaline Phosphatase (38-126) U/L Total Creatine Kinase 116 (30-135) U/L CK-MB (CK-2) 2.77 H (<2.37) ng/mL CK-MB (CK-2) Rel Index 2.4 (1.5-5.0) % Troponin I 0.296 H* (0.01-0.034) ng/mL Total Protein (6.3-8.2) g/dL Albumin (3.5-5.0) g/dL Globulin (1.7-4.1) g/dL Albumin/Globulin Ratio (1.0-2.8) Lipase (23-300) U/L SARS-CoV-2 (PCR) (Negative) 01/12/22 01/12/22 Range/Units 05:56 13:00 WBC (4.5-11.0) X10^3/uL RBC (4.0-5.2) X10^6/uL Hgb (12.0-16.0) g/dL Hct (36-46) % MCV (80-100) fL MCH (26-34) PG MCHC (30-36) % RDW (11.6-14.8) % Plt Count (150-400) X10^3/uL Neut % (Auto) (50-75) % Lymph % (Auto) (25-40) % [place] % (Auto) (3-14) % Eos % (Auto) (2-4) % Baso % (Auto) (0-2) % Neut # (Auto) (9398-5217) /uL Lymph # (Auto) (8702-1123) /uL [place] # (Auto) (0-900) /uL Eos # (Auto) (0-450) /uL Baso # (Auto) (0-100) /uL PT (10.1-12.7) SECONDS INR (0.9-1.3) APTT (26.4-36.2) SECONDS D-Dimer (<230) ng/mL Sodium 138 (137-145) mmol/L Potassium 3.9 (3.4-5.1) mmol/L Chloride 103 (98-107) mmol/L Carbon Dioxide 28 (22-32) mmol/L BUN 15 (7-17) mg/dL Creatinine 0.61 (0.52-1.04) mg/dL Estimated GFR > 60 (>60) mL/min BUN/Creatinine Ratio 24.6 H (6-22) Glucose 101 D (80-110) mg/dL Calcium 8.5 (8.4-10.2) mg/dL Magnesium (1.6-2.3) mg/dL Total Bilirubin (0.2-1.3) mg/dL AST (14-36) IU/L ALT (<35) IU/L Alkaline Phosphatase (38-126) U/L Total Creatine Kinase 109 (30-135) U/L CK-MB (CK-2) 1.76 (<2.37) ng/mL CK-MB (CK-2) Rel Index 1.6 (1.5-5.0) % Troponin I 0.273 H* (0.01-0.034) ng/mL Total Protein (6.3-8.2) g/dL Albumin (3.5-5.0) g/dL Globulin (1.7-4.1) g/dL Albumin/Globulin Ratio (1.0-2.8) Lipase (23-300) U/L SARS-CoV-2 (PCR) Positive H (Negative) Point of Care Testing Glucose POC 93 Imaging Data Chest x-ray: Radiologist's Impression: Have acute cardiopulmonary abnormalities identified ECG Data Attestation: I personally reviewed and interpreted this ECG as follows: Interpretation: Sinus rhythm Ventricular rate is 65 Normal axis Normal QRS Normal QTC One PAC Nonspecific ST T wave changes MDM Narrative Medical decision making narrative: Chest x-ray is unremarkable. Has a heart score of 6. Has known coronary artery disease. Is now asymptomatic after nitro and morphine. EKG has nonspecific changes. No prior EKGs for comparison. Initial troponin greater than 99th percentile. Will repeat troponin and disposition based on result of this. Care turned over to Dr. Dumont to follow-up and disposition. <Cassius Dumont, DO - Last Filed: 01/17/22 00:37> Lab Data Labs: Lab Results 01/10/22 01/10/22 01/10/22 Range/Units 05:21 05:21 05:26 WBC 9.2 (4.5-11.0) X10^3/uL RBC 4.33 (4.0-5.2) X10^6/uL Hgb 13.5 (12.0-16.0) g/dL Hct 40.0 (36-46) % MCV 92.3 (80-100) fL MCH 31.3 (26-34) PG MCHC 33.9 (30-36) % RDW 14.3 (11.6-14.8) % Plt Count 211 (150-400) X10^3/uL Neut % (Auto) 76.9 H (50-75) % Lymph % (Auto) 17.1 L (25-40) % [place] % (Auto) 4.6 (3-14) % Eos % (Auto) 1.0 L (2-4) % Baso % (Auto) 0.4 (0-2) % Neut # (Auto) 7100 H (6801-0677) /uL Lymph # (Auto) 1600 (2095-9998) /uL [place] # (Auto) 400 (0-900) /uL Eos # (Auto) 100 (0-450) /uL Baso # (Auto) 0 (0-100) /uL PT 12.1 (10.1-12.7) SECONDS INR 1.1 (0.9-1.3) APTT 30 (26.4-36.2) SECONDS D-Dimer (<230) ng/mL Sodium (137-145) mmol/L Potassium (3.4-5.1) mmol/L Chloride (98-107) mmol/L Carbon Dioxide (22-32) mmol/L BUN (7-17) mg/dL Creatinine (0.52-1.04) mg/dL Estimated GFR (>60) mL/min BUN/Creatinine Ratio (6-22) Glucose (80-110) mg/dL Calcium (8.4-10.2) mg/dL Magnesium (1.6-2.3) mg/dL Total Bilirubin (0.2-1.3) mg/dL AST (14-36) IU/L ALT (<35) IU/L Alkaline Phosphatase (38-126) U/L Total Creatine Kinase (30-135) U/L CK-MB (CK-2) (<2.37) ng/mL CK-MB (CK-2) Rel Index (1.5-5.0) % Troponin I (0.01-0.034) ng/mL Total Protein (6.3-8.2) g/dL Albumin (3.5-5.0) g/dL Globulin (1.7-4.1) g/dL Albumin/Globulin Ratio (1.0-2.8) Lipase (23-300) U/L SARS-CoV-2 (PCR) Positive H (Negative) 01/10/22 01/10/22 01/10/22 Range/Units 05:56 05:56 08:05 WBC (4.5-11.0) X10^3/uL RBC (4.0-5.2) X10^6/uL Hgb (12.0-16.0) g/dL Hct (36-46) % MCV (80-100) fL MCH (26-34) PG MCHC (30-36) % RDW (11.6-14.8) % Plt Count (150-400) X10^3/uL Neut % (Auto) (50-75) % Lymph % (Auto) (25-40) % [place] % (Auto) (3-14) % Eos % (Auto) (2-4) % Baso % (Auto) (0-2) % Neut # (Auto) (9153-4493) /uL Lymph # (Auto) (0815-5089) /uL [place] # (Auto) (0-900) /uL Eos # (Auto) (0-450) /uL Baso # (Auto) (0-100) /uL PT (10.1-12.7) SECONDS INR (0.9-1.3) APTT (26.4-36.2) SECONDS D-Dimer (<230) ng/mL Sodium 138 (137-145) mmol/L Potassium 3.5 (3.4-5.1) mmol/L Chloride 100 (98-107) mmol/L Carbon Dioxide 28 (22-32) mmol/L BUN 14 (7-17) mg/dL Creatinine 0.79 (0.52-1.04) mg/dL Estimated GFR > 60 (>60) mL/min BUN/Creatinine Ratio 17.7 (6-22) Glucose 210 H (80-110) mg/dL Calcium 8.5 (8.4-10.2) mg/dL Magnesium 2.0 (1.6-2.3) mg/dL Total Bilirubin 0.4 (0.2-1.3) mg/dL AST 34 (14-36) IU/L ALT 31 (<35) IU/L Alkaline Phosphatase 64 (38-126) U/L Total Creatine Kinase 123 119 (30-135) U/L CK-MB (CK-2) 1.11 2.47 H D (<2.37) ng/mL CK-MB (CK-2) Rel Index 0.9 L 2.1 (1.5-5.0) % Troponin I 0.039 H 0.115 H (0.01-0.034) ng/mL Total Protein 7.7 (6.3-8.2) g/dL Albumin 4.2 (3.5-5.0) g/dL Globulin 3.5 (1.7-4.1) g/dL Albumin/Globulin Ratio 1.2 (1.0-2.8) Lipase 61 (23-300) U/L SARS-CoV-2 (PCR) (Negative) 01/10/22 01/10/22 01/10/22 Range/Units 10:12 17:35 21:20 WBC (4.5-11.0) X10^3/uL RBC (4.0-5.2) X10^6/uL Hgb (12.0-16.0) g/dL Hct (36-46) % MCV (80-100) fL MCH (26-34) PG MCHC (30-36) % RDW (11.6-14.8) % Plt Count (150-400) X10^3/uL Neut % (Auto) (50-75) % Lymph % (Auto) (25-40) % [place] % (Auto) (3-14) % Eos % (Auto) (2-4) % Baso % (Auto) (0-2) % Neut # (Auto) (3122-2125) /uL Lymph # (Auto) (7766-8973) /uL [place] # (Auto) (0-900) /uL Eos # (Auto) (0-450) /uL Baso # (Auto) (0-100) /uL PT (10.1-12.7) SECONDS INR (0.9-1.3) APTT 33 138 H* D (26.4-36.2) SECONDS D-Dimer (<230) ng/mL Sodium (137-145) mmol/L Potassium (3.4-5.1) mmol/L Chloride (98-107) mmol/L Carbon Dioxide (22-32) mmol/L BUN (7-17) mg/dL Creatinine (0.52-1.04) mg/dL Estimated GFR (>60) mL/min BUN/Creatinine Ratio (6-22) Glucose (80-110) mg/dL Calcium (8.4-10.2) mg/dL Magnesium (1.6-2.3) mg/dL Total Bilirubin (0.2-1.3) mg/dL AST (14-36) IU/L ALT (<35) IU/L Alkaline Phosphatase (38-126) U/L Total Creatine Kinase (30-135) U/L CK-MB (CK-2) (<2.37) ng/mL CK-MB (CK-2) Rel Index (1.5-5.0) % Troponin I 0.524 H* (0.01-0.034) ng/mL Total Protein (6.3-8.2) g/dL Albumin (3.5-5.0) g/dL Globulin (1.7-4.1) g/dL Albumin/Globulin Ratio (1.0-2.8) Lipase (23-300) U/L SARS-CoV-2 (PCR) (Negative) 01/10/22 01/11/22 01/11/22 Range/Units 23:38 05:50 05:50 WBC (4.5-11.0) X10^3/uL RBC (4.0-5.2) X10^6/uL Hgb (12.0-16.0) g/dL Hct (36-46) % MCV (80-100) fL MCH (26-34) PG MCHC (30-36) % RDW (11.6-14.8) % Plt Count (150-400) X10^3/uL Neut % (Auto) (50-75) % Lymph % (Auto) (25-40) % [place] % (Auto) (3-14) % Eos % (Auto) (2-4) % Baso % (Auto) (0-2) % Neut # (Auto) (3130-6771) /uL Lymph # (Auto) (2117-2631) /uL [place] # (Auto) (0-900) /uL Eos # (Auto) (0-450) /uL Baso # (Auto) (0-100) /uL PT (10.1-12.7) SECONDS INR (0.9-1.3) APTT 88 H* D 65 H D (26.4-36.2) SECONDS D-Dimer 211 (<230) ng/mL Sodium (137-145) mmol/L Potassium (3.4-5.1) mmol/L Chloride (98-107) mmol/L Carbon Dioxide (22-32) mmol/L BUN (7-17) mg/dL Creatinine (0.52-1.04) mg/dL Estimated GFR (>60) mL/min BUN/Creatinine Ratio (6-22) Glucose (80-110) mg/dL Calcium (8.4-10.2) mg/dL Magnesium (1.6-2.3) mg/dL Total Bilirubin (0.2-1.3) mg/dL AST (14-36) IU/L ALT (<35) IU/L Alkaline Phosphatase (38-126) U/L Total Creatine Kinase (30-135) U/L CK-MB (CK-2) (<2.37) ng/mL CK-MB (CK-2) Rel Index (1.5-5.0) % Troponin I (0.01-0.034) ng/mL Total Protein (6.3-8.2) g/dL Albumin (3.5-5.0) g/dL Globulin (1.7-4.1) g/dL Albumin/Globulin Ratio (1.0-2.8) Lipase (23-300) U/L SARS-CoV-2 (PCR) (Negative) 01/11/22 01/11/22 01/11/22 Range/Units 06:00 06:00 11:25 WBC (4.5-11.0) X10^3/uL RBC (4.0-5.2) X10^6/uL Hgb 13.3 (12.0-16.0) g/dL Hct 39.5 (36-46) % MCV (80-100) fL MCH (26-34) PG MCHC (30-36) % RDW (11.6-14.8) % Plt Count (150-400) X10^3/uL Neut % (Auto) (50-75) % Lymph % (Auto) (25-40) % [place] % (Auto) (3-14) % Eos % (Auto) (2-4) % Baso % (Auto) (0-2) % Neut # (Auto) (0400-9141) /uL Lymph # (Auto) (4146-5969) /uL [place] # (Auto) (0-900) /uL Eos # (Auto) (0-450) /uL Baso # (Auto) (0-100) /uL PT (10.1-12.7) SECONDS INR (0.9-1.3) APTT 72 H (26.4-36.2) SECONDS D-Dimer (<230) ng/mL Sodium (137-145) mmol/L Potassium (3.4-5.1) mmol/L Chloride (98-107) mmol/L Carbon Dioxide (22-32) mmol/L BUN (7-17) mg/dL Creatinine (0.52-1.04) mg/dL Estimated GFR (>60) mL/min BUN/Creatinine Ratio (6-22) Glucose (80-110) mg/dL Calcium (8.4-10.2) mg/dL Magnesium (1.6-2.3) mg/dL Total Bilirubin (0.2-1.3) mg/dL AST (14-36) IU/L ALT (<35) IU/L Alkaline Phosphatase (38-126) U/L Total Creatine Kinase (30-135) U/L CK-MB (CK-2) (<2.37) ng/mL CK-MB (CK-2) Rel Index (1.5-5.0) % Troponin I 0.424 H* (0.01-0.034) ng/mL Total Protein (6.3-8.2) g/dL Albumin (3.5-5.0) g/dL Globulin (1.7-4.1) g/dL Albumin/Globulin Ratio (1.0-2.8) Lipase (23-300) U/L SARS-CoV-2 (PCR) (Negative) 01/11/22 01/12/22 01/12/22 Range/Units 16:45 05:45 05:56 WBC (4.5-11.0) X10^3/uL RBC (4.0-5.2) X10^6/uL Hgb 13.5 (12.0-16.0) g/dL Hct 39.3 (36-46) % MCV (80-100) fL MCH (26-34) PG MCHC (30-36) % RDW (11.6-14.8) % Plt Count (150-400) X10^3/uL Neut % (Auto) (50-75) % Lymph % (Auto) (25-40) % Sau[place] % (Auto) (3-14) % Eos % (Auto) (2-4) % Baso % (Auto) (0-2) % Neut # (Auto) (6861-7005) /uL Lymph # (Auto) (6914-8282) /uL [place] # (Auto) (0-900) /uL Eos # (Auto) (0-450) /uL Baso # (Auto) (0-100) /uL PT (10.1-12.7) SECONDS INR (0.9-1.3) APTT 57 H D (26.4-36.2) SECONDS D-Dimer (<230) ng/mL Sodium (137-145) mmol/L Potassium (3.4-5.1) mmol/L Chloride (98-107) mmol/L Carbon Dioxide (22-32) mmol/L BUN (7-17) mg/dL Creatinine (0.52-1.04) mg/dL Estimated GFR (>60) mL/min BUN/Creatinine Ratio (6-22) Glucose (80-110) mg/dL Calcium (8.4-10.2) mg/dL Magnesium (1.6-2.3) mg/dL Total Bilirubin (0.2-1.3) mg/dL AST (14-36) IU/L ALT (<35) IU/L Alkaline Phosphatase (38-126) U/L Total Creatine Kinase 116 (30-135) U/L CK-MB (CK-2) 2.77 H (<2.37) ng/mL CK-MB (CK-2) Rel Index 2.4 (1.5-5.0) % Troponin I 0.296 H* (0.01-0.034) ng/mL Total Protein (6.3-8.2) g/dL Albumin (3.5-5.0) g/dL Globulin (1.7-4.1) g/dL Albumin/Globulin Ratio (1.0-2.8) Lipase (23-300) U/L SARS-CoV-2 (PCR) (Negative) 01/12/22 01/12/22 Range/Units 05:56 13:00 WBC (4.5-11.0) X10^3/uL RBC (4.0-5.2) X10^6/uL Hgb (12.0-16.0) g/dL Hct (36-46) % MCV (80-100) fL MCH (26-34) PG MCHC (30-36) % RDW (11.6-14.8) % Plt Count (150-400) X10^3/uL Neut % (Auto) (50-75) % Lymph % (Auto) (25-40) % [place] % (Auto) (3-14) % Eos % (Auto) (2-4) % Baso % (Auto) (0-2) % Neut # (Auto) (2486-9310) /uL Lymph # (Auto) (0677-0903) /uL [place] # (Auto) (0-900) /uL Eos # (Auto) (0-450) /uL Baso # (Auto) (0-100) /uL PT (10.1-12.7) SECONDS INR (0.9-1.3) APTT (26.4-36.2) SECONDS D-Dimer (<230) ng/mL Sodium 138 (137-145) mmol/L Potassium 3.9 (3.4-5.1) mmol/L Chloride 103 (98-107) mmol/L Carbon Dioxide 28 (22-32) mmol/L BUN 15 (7-17) mg/dL Creatinine 0.61 (0.52-1.04) mg/dL Estimated GFR > 60 (>60) mL/min BUN/Creatinine Ratio 24.6 H (6-22) Glucose 101 D (80-110) mg/dL Calcium 8.5 (8.4-10.2) mg/dL Magnesium (1.6-2.3) mg/dL Total Bilirubin (0.2-1.3) mg/dL AST (14-36) IU/L ALT (<35) IU/L Alkaline Phosphatase (38-126) U/L Total Creatine Kinase 109 (30-135) U/L CK-MB (CK-2) 1.76 (<2.37) ng/mL CK-MB (CK-2) Rel Index 1.6 (1.5-5.0) % Troponin I 0.273 H* (0.01-0.034) ng/mL Total Protein (6.3-8.2) g/dL Albumin (3.5-5.0) g/dL Globulin (1.7-4.1) g/dL Albumin/Globulin Ratio (1.0-2.8) Lipase (23-300) U/L SARS-CoV-2 (PCR) Positive H (Negative) Point of Care Testing Glucose POC 93 MDM Narrative Medical decision making narrative: Chest x-ray is unremarkable. Has a heart score of 6. Has known coronary artery disease. Is now asymptomatic after nitro and morphine. EKG has nonspecific changes. No prior EKGs for comparison. Initial troponin greater than 99th percentile. Will repeat troponin and disposition based on result of this. Care turned over to Dr. Dumont to follow-up and disposition. [0700] (Tim) Patient received in sign out from [Beryl]. I have reviewed the clinical course and performed an independent history and physical exam. 1730 - patient continues to be symptom free. [facility]) accepts, no beds, keep on heparin tonight. NPO after midnight. Likely bed tomorrow 1800 -patient signed out to Dr. Dean at shift change, 01/10/22 2100 Dianne: Patient signed out to myself by Dr. Dumont. Patient has been asymptomatic with nitro and morphine topically. Patient had ST depression/inversion but no acute elevation. Patient seen independently evaluated by myself. She developed left arm pain in the department repeat EKG shows no dynamic changes appears similar to 1st EKG. Patient's nitro paste had been removed and was replaced and was re-evaluated after this patient continues to have pain but actually states it did not resolve until after she received morphine we will repeat morphine as well. If pain is persisting will re-contact cardiology start nitro drip. Patient did not have her home medications today. Attempting to obtain her dosages to restart these to help with blood pressure control and restarting statin At this time plan is currently for patient to transfer to [facility] with Dr. Stafford hopefully tomorrow for cardiac catheterization she is COVID positive with a troponin went from 0.039 to 0.115. Patient case was discussed with Dr. Stafford with cardiology. Troponin is on repeat was positive. Patient chest pain resolved after nitro re-initiated and given dose of morphine. Will add nitro gtt if becomes more persistent or changes. Goal of transfer for cardiac cath. Still no beds available regionally but hopefully during daytime hours today. Patient signed out to Dr. Dumont while awaiting transfer. [0700 01/11] (Tim) Patient received back in sign out from [Dianne]. I have reviewed the clinical course and new labs. Resting comfortably, still working on transfer <Yomaira Dean, - Last Filed: 01/18/22 08:54> Lab Data Labs: Lab Results 01/10/22 01/10/22 01/10/22 Range/Units 05:21 05:21 05:26 WBC 9.2 (4.5-11.0) X10^3/uL RBC 4.33 (4.0-5.2) X10^6/uL Hgb 13.5 (12.0-16.0) g/dL Hct 40.0 (36-46) % MCV 92.3 (80-100) fL MCH 31.3 (26-34) PG MCHC 33.9 (30-36) % RDW 14.3 (11.6-14.8) % Plt Count 211 (150-400) X10^3/uL Neut % (Auto) 76.9 H (50-75) % Lymph % (Auto) 17.1 L (25-40) % Sauk % (Auto) 4.6 (3-14) % Eos % (Auto) 1.0 L (2-4) % Baso % (Auto) 0.4 (0-2) % Neut # (Auto) 7100 H (7179-3917) /uL Lymph # (Auto) 1600 (7675-2311) /uL [place] # (Auto) 400 (0-900) /uL Eos # (Auto) 100 (0-450) /uL Baso # (Auto) 0 (0-100) /uL PT 12.1 (10.1-12.7) SECONDS INR 1.1 (0.9-1.3) APTT 30 (26.4-36.2) SECONDS D-Dimer (<230) ng/mL Sodium (137-145) mmol/L Potassium (3.4-5.1) mmol/L Chloride (98-107) mmol/L Carbon Dioxide (22-32) mmol/L BUN (7-17) mg/dL Creatinine (0.52-1.04) mg/dL Estimated GFR (>60) mL/min BUN/Creatinine Ratio (6-22) Glucose (80-110) mg/dL Calcium (8.4-10.2) mg/dL Magnesium (1.6-2.3) mg/dL Total Bilirubin (0.2-1.3) mg/dL AST (14-36) IU/L ALT (<35) IU/L Alkaline Phosphatase (38-126) U/L Total Creatine Kinase (30-135) U/L CK-MB (CK-2) (<2.37) ng/mL CK-MB (CK-2) Rel Index (1.5-5.0) % Troponin I (0.01-0.034) ng/mL Total Protein (6.3-8.2) g/dL Albumin (3.5-5.0) g/dL Globulin (1.7-4.1) g/dL Albumin/Globulin Ratio (1.0-2.8) Lipase (23-300) U/L SARS-CoV-2 (PCR) Positive H (Negative) 01/10/22 01/10/22 01/10/22 Range/Units 05:56 05:56 08:05 WBC (4.5-11.0) X10^3/uL RBC (4.0-5.2) X10^6/uL Hgb (12.0-16.0) g/dL Hct (36-46) % MCV (80-100) fL MCH (26-34) PG MCHC (30-36) % RDW (11.6-14.8) % Plt Count (150-400) X10^3/uL Neut % (Auto) (50-75) % Lymph % (Auto) (25-40) % [place] % (Auto) (3-14) % Eos % (Auto) (2-4) % Baso % (Auto) (0-2) % Neut # (Auto) (7097-7282) /uL Lymph # (Auto) (5187-6987) /uL [place] # (Auto) (0-900) /uL Eos # (Auto) (0-450) /uL Baso # (Auto) (0-100) /uL PT (10.1-12.7) SECONDS INR (0.9-1.3) APTT (26.4-36.2) SECONDS D-Dimer (<230) ng/mL Sodium 138 (137-145) mmol/L Potassium 3.5 (3.4-5.1) mmol/L Chloride 100 (98-107) mmol/L Carbon Dioxide 28 (22-32) mmol/L BUN 14 (7-17) mg/dL Creatinine 0.79 (0.52-1.04) mg/dL Estimated GFR > 60 (>60) mL/min BUN/Creatinine Ratio 17.7 (6-22) Glucose 210 H (80-110) mg/dL Calcium 8.5 (8.4-10.2) mg/dL Magnesium 2.0 (1.6-2.3) mg/dL Total Bilirubin 0.4 (0.2-1.3) mg/dL AST 34 (14-36) IU/L ALT 31 (<35) IU/L Alkaline Phosphatase 64 (38-126) U/L Total Creatine Kinase 123 119 (30-135) U/L CK-MB (CK-2) 1.11 2.47 H D (<2.37) ng/mL CK-MB (CK-2) Rel Index 0.9 L 2.1 (1.5-5.0) % Troponin I 0.039 H 0.115 H (0.01-0.034) ng/mL Total Protein 7.7 (6.3-8.2) g/dL Albumin 4.2 (3.5-5.0) g/dL Globulin 3.5 (1.7-4.1) g/dL Albumin/Globulin Ratio 1.2 (1.0-2.8) Lipase 61 (23-300) U/L SARS-CoV-2 (PCR) (Negative) 01/10/22 01/10/22 01/10/22 Range/Units 10:12 17:35 21:20 WBC (4.5-11.0) X10^3/uL RBC (4.0-5.2) X10^6/uL Hgb (12.0-16.0) g/dL Hct (36-46) % MCV (80-100) fL MCH (26-34) PG MCHC (30-36) % RDW (11.6-14.8) % Plt Count (150-400) X10^3/uL Neut % (Auto) (50-75) % Lymph % (Auto) (25-40) % [place] % (Auto) (3-14) % Eos % (Auto) (2-4) % Baso % (Auto) (0-2) % Neut # (Auto) (0058-8043) /uL Lymph # (Auto) (8681-2560) /uL [place] # (Auto) (0-900) /uL Eos # (Auto) (0-450) /uL Baso # (Auto) (0-100) /uL PT (10.1-12.7) SECONDS INR (0.9-1.3) APTT 33 138 H* D (26.4-36.2) SECONDS D-Dimer (<230) ng/mL Sodium (137-145) mmol/L Potassium (3.4-5.1) mmol/L Chloride (98-107) mmol/L Carbon Dioxide (22-32) mmol/L BUN (7-17) mg/dL Creatinine (0.52-1.04) mg/dL Estimated GFR (>60) mL/min BUN/Creatinine Ratio (6-22) Glucose (80-110) mg/dL Calcium (8.4-10.2) mg/dL Magnesium (1.6-2.3) mg/dL Total Bilirubin (0.2-1.3) mg/dL AST (14-36) IU/L ALT (<35) IU/L Alkaline Phosphatase (38-126) U/L Total Creatine Kinase (30-135) U/L CK-MB (CK-2) (<2.37) ng/mL CK-MB (CK-2) Rel Index (1.5-5.0) % Troponin I 0.524 H* (0.01-0.034) ng/mL Total Protein (6.3-8.2) g/dL Albumin (3.5-5.0) g/dL Globulin (1.7-4.1) g/dL Albumin/Globulin Ratio (1.0-2.8) Lipase (23-300) U/L SARS-CoV-2 (PCR) (Negative) 01/10/22 01/11/22 01/11/22 Range/Units 23:38 05:50 05:50 WBC (4.5-11.0) X10^3/uL RBC (4.0-5.2) X10^6/uL Hgb (12.0-16.0) g/dL Hct (36-46) % MCV (80-100) fL MCH (26-34) PG MCHC (30-36) % RDW (11.6-14.8) % Plt Count (150-400) X10^3/uL Neut % (Auto) (50-75) % Lymph % (Auto) (25-40) % [place] % (Auto) (3-14) % Eos % (Auto) (2-4) % Baso % (Auto) (0-2) % Neut # (Auto) (1325-3269) /uL Lymph # (Auto) (7071-9752) /uL [place] # (Auto) (0-900) /uL Eos # (Auto) (0-450) /uL Baso # (Auto) (0-100) /uL PT (10.1-12.7) SECONDS INR (0.9-1.3) APTT 88 H* D 65 H D (26.4-36.2) SECONDS D-Dimer 211 (<230) ng/mL Sodium (137-145) mmol/L Potassium (3.4-5.1) mmol/L Chloride (98-107) mmol/L Carbon Dioxide (22-32) mmol/L BUN (7-17) mg/dL Creatinine (0.52-1.04) mg/dL Estimated GFR (>60) mL/min BUN/Creatinine Ratio (6-22) Glucose (80-110) mg/dL Calcium (8.4-10.2) mg/dL Magnesium (1.6-2.3) mg/dL Total Bilirubin (0.2-1.3) mg/dL AST (14-36) IU/L ALT (<35) IU/L Alkaline Phosphatase (38-126) U/L Total Creatine Kinase (30-135) U/L CK-MB (CK-2) (<2.37) ng/mL CK-MB (CK-2) Rel Index (1.5-5.0) % Troponin I (0.01-0.034) ng/mL Total Protein (6.3-8.2) g/dL Albumin (3.5-5.0) g/dL Globulin (1.7-4.1) g/dL Albumin/Globulin Ratio (1.0-2.8) Lipase (23-300) U/L SARS-CoV-2 (PCR) (Negative) 01/11/22 01/11/22 01/11/22 Range/Units 06:00 06:00 11:25 WBC (4.5-11.0) X10^3/uL RBC (4.0-5.2) X10^6/uL Hgb 13.3 (12.0-16.0) g/dL Hct 39.5 (36-46) % MCV (80-100) fL MCH (26-34) PG MCHC (30-36) % RDW (11.6-14.8) % Plt Count (150-400) X10^3/uL Neut % (Auto) (50-75) % Lymph % (Auto) (25-40) % [place] % (Auto) (3-14) % Eos % (Auto) (2-4) % Baso % (Auto) (0-2) % Neut # (Auto) (4113-1864) /uL Lymph # (Auto) (7879-0023) /uL [place] # (Auto) (0-900) /uL Eos # (Auto) (0-450) /uL Baso # (Auto) (0-100) /uL PT (10.1-12.7) SECONDS INR (0.9-1.3) APTT 72 H (26.4-36.2) SECONDS D-Dimer (<230) ng/mL Sodium (137-145) mmol/L Potassium (3.4-5.1) mmol/L Chloride (98-107) mmol/L Carbon Dioxide (22-32) mmol/L BUN (7-17) mg/dL Creatinine (0.52-1.04) mg/dL Estimated GFR (>60) mL/min BUN/Creatinine Ratio (6-22) Glucose (80-110) mg/dL Calcium (8.4-10.2) mg/dL Magnesium (1.6-2.3) mg/dL Total Bilirubin (0.2-1.3) mg/dL AST (14-36) IU/L ALT (<35) IU/L Alkaline Phosphatase (38-126) U/L Total Creatine Kinase (30-135) U/L CK-MB (CK-2) (<2.37) ng/mL CK-MB (CK-2) Rel Index (1.5-5.0) % Troponin I 0.424 H* (0.01-0.034) ng/mL Total Protein (6.3-8.2) g/dL Albumin (3.5-5.0) g/dL Globulin (1.7-4.1) g/dL Albumin/Globulin Ratio (1.0-2.8) Lipase (23-300) U/L SARS-CoV-2 (PCR) (Negative) 01/11/22 01/12/22 01/12/22 Range/Units 16:45 05:45 05:56 WBC (4.5-11.0) X10^3/uL RBC (4.0-5.2) X10^6/uL Hgb 13.5 (12.0-16.0) g/dL Hct 39.3 (36-46) % MCV (80-100) fL MCH (26-34) PG MCHC (30-36) % RDW (11.6-14.8) % Plt Count (150-400) X10^3/uL Neut % (Auto) (50-75) % Lymph % (Auto) (25-40) % [place] % (Auto) (3-14) % Eos % (Auto) (2-4) % Baso % (Auto) (0-2) % Neut # (Auto) (5112-1655) /uL Lymph # (Auto) (0067-1014) /uL [place] # (Auto) (0-900) /uL Eos # (Auto) (0-450) /uL Baso # (Auto) (0-100) /uL PT (10.1-12.7) SECONDS INR (0.9-1.3) APTT 57 H D (26.4-36.2) SECONDS D-Dimer (<230) ng/mL Sodium (137-145) mmol/L Potassium (3.4-5.1) mmol/L Chloride (98-107) mmol/L Carbon Dioxide (22-32) mmol/L BUN (7-17) mg/dL Creatinine (0.52-1.04) mg/dL Estimated GFR (>60) mL/min BUN/Creatinine Ratio (6-22) Glucose (80-110) mg/dL Calcium (8.4-10.2) mg/dL Magnesium (1.6-2.3) mg/dL Total Bilirubin (0.2-1.3) mg/dL AST (14-36) IU/L ALT (<35) IU/L Alkaline Phosphatase (38-126) U/L Total Creatine Kinase 116 (30-135) U/L CK-MB (CK-2) 2.77 H (<2.37) ng/mL CK-MB (CK-2) Rel Index 2.4 (1.5-5.0) % Troponin I 0.296 H* (0.01-0.034) ng/mL Total Protein (6.3-8.2) g/dL Albumin (3.5-5.0) g/dL Globulin (1.7-4.1) g/dL Albumin/Globulin Ratio (1.0-2.8) Lipase (23-300) U/L SARS-CoV-2 (PCR) (Negative) 01/12/22 01/12/22 Range/Units 05:56 13:00 WBC (4.5-11.0) X10^3/uL RBC (4.0-5.2) X10^6/uL Hgb (12.0-16.0) g/dL Hct (36-46) % MCV (80-100) fL MCH (26-34) PG MCHC (30-36) % RDW (11.6-14.8) % Plt Count (150-400) X10^3/uL Neut % (Auto) (50-75) % Lymph % (Auto) (25-40) % [place] % (Auto) (3-14) % Eos % (Auto) (2-4) % Baso % (Auto) (0-2) % Neut # (Auto) (6776-3793) /uL Lymph # (Auto) (6841-2270) /uL [place] # (Auto) (0-900) /uL Eos # (Auto) (0-450) /uL Baso # (Auto) (0-100) /uL PT (10.1-12.7) SECONDS INR (0.9-1.3) APTT (26.4-36.2) SECONDS D-Dimer (<230) ng/mL Sodium 138 (137-145) mmol/L Potassium 3.9 (3.4-5.1) mmol/L Chloride 103 (98-107) mmol/L Carbon Dioxide 28 (22-32) mmol/L BUN 15 (7-17) mg/dL Creatinine 0.61 (0.52-1.04) mg/dL Estimated GFR > 60 (>60) mL/min BUN/Creatinine Ratio 24.6 H (6-22) Glucose 101 D (80-110) mg/dL Calcium 8.5 (8.4-10.2) mg/dL Magnesium (1.6-2.3) mg/dL Total Bilirubin (0.2-1.3) mg/dL AST (14-36) IU/L ALT (<35) IU/L Alkaline Phosphatase (38-126) U/L Total Creatine Kinase 109 (30-135) U/L CK-MB (CK-2) 1.76 (<2.37) ng/mL CK-MB (CK-2) Rel Index 1.6 (1.5-5.0) % Troponin I 0.273 H* (0.01-0.034) ng/mL Total Protein (6.3-8.2) g/dL Albumin (3.5-5.0) g/dL Globulin (1.7-4.1) g/dL Albumin/Globulin Ratio (1.0-2.8) Lipase (23-300) U/L SARS-CoV-2 (PCR) Positive H (Negative) Point of Care Testing Glucose POC 93 MDM Narrative Medical decision making narrative: Chest x-ray is unremarkable. Has a heart score of 6. Has known coronary artery disease. Is now asymptomatic after nitro and morphine. EKG has nonspecific changes. No prior EKGs for comparison. Initial troponin greater than 99th percentile. Will repeat troponin and disposition based on result of this. Care turned over to Dr. Dumont to follow-up and disposition. [0700] (Tim) Patient received in sign out from [Beryl]. I have reviewed the clinical course and performed an independent history and physical exam. 1730 - patient continues to be symptom free. [facility] ([place]) accepts, no beds, keep on heparin tonight. NPO after midnight. Likely bed tomorrow 1800 -patient signed out to Dr. Dean at shift change, 01/10/22 2100 Mank: Patient signed out to myself by Dr. Dumont. Patient has been asymptomatic with nitro and morphine topically. Patient had ST depression/inversion but no acute elevation. Patient seen independently evaluated by myself. She developed left arm pain in the department repeat EKG shows no dynamic changes appears similar to 1st EKG. Patient's nitro paste had been removed and was replaced and was re-evaluated after this patient continues to have pain but actually states it did not resolve until after she received morphine we will repeat morphine as well. If pain is persisting will re-contact cardiology start nitro drip. Patient did not have her home medications today. Attempting to obtain her dosages to restart these to help with blood pressure control and restarting statin At this time plan is currently for patient to transfer to [facility] with Dr. Stafford hopefully tomorrow for cardiac catheterization she is COVID positive with a troponin went from 0.039 to 0.115. Patient case was discussed with Dr. Stafford with cardiology. Troponin is on repeat was positive. Patient chest pain resolved after nitro re-initiated and given dose of morphine. Will add nitro gtt if becomes more persistent or changes. Goal of transfer for cardiac cath. Still no beds available regionally but hopefully during daytime hours today. Patient signed out to Dr. Dumont while awaiting transfer. <Musa Olmstead MD - Last Filed: 01/12/22 13:47> Lab Data Labs: Lab Results 01/10/22 01/10/22 01/10/22 Range/Units 05:21 05:21 05:26 WBC 9.2 (4.5-11.0) X10^3/uL RBC 4.33 (4.0-5.2) X10^6/uL Hgb 13.5 (12.0-16.0) g/dL Hct 40.0 (36-46) % MCV 92.3 (80-100) fL MCH 31.3 (26-34) PG MCHC 33.9 (30-36) % RDW 14.3 (11.6-14.8) % Plt Count 211 (150-400) X10^3/uL Neut % (Auto) 76.9 H (50-75) % Lymph % (Auto) 17.1 L (25-40) % Sauk % (Auto) 4.6 (3-14) % Eos % (Auto) 1.0 L (2-4) % Baso % (Auto) 0.4 (0-2) % Neut # (Auto) 7100 H (0380-3564) /uL Lymph # (Auto) 1600 (5155-5753) /uL [place]k # (Auto) 400 (0-900) /uL Eos # (Auto) 100 (0-450) /uL Baso # (Auto) 0 (0-100) /uL PT 12.1 (10.1-12.7) SECONDS INR 1.1 (0.9-1.3) APTT 30 (26.4-36.2) SECONDS D-Dimer (<230) ng/mL Sodium (137-145) mmol/L Potassium (3.4-5.1) mmol/L Chloride (98-107) mmol/L Carbon Dioxide (22-32) mmol/L BUN (7-17) mg/dL Creatinine (0.52-1.04) mg/dL Estimated GFR (>60) mL/min BUN/Creatinine Ratio (6-22) Glucose (80-110) mg/dL Calcium (8.4-10.2) mg/dL Magnesium (1.6-2.3) mg/dL Total Bilirubin (0.2-1.3) mg/dL AST (14-36) IU/L ALT (<35) IU/L Alkaline Phosphatase (38-126) U/L Total Creatine Kinase (30-135) U/L CK-MB (CK-2) (<2.37) ng/mL CK-MB (CK-2) Rel Index (1.5-5.0) % Troponin I (0.01-0.034) ng/mL Total Protein (6.3-8.2) g/dL Albumin (3.5-5.0) g/dL Globulin (1.7-4.1) g/dL Albumin/Globulin Ratio (1.0-2.8) Lipase (23-300) U/L SARS-CoV-2 (PCR) Positive H (Negative) 01/10/22 01/10/22 01/10/22 Range/Units 05:56 05:56 08:05 WBC (4.5-11.0) X10^3/uL RBC (4.0-5.2) X10^6/uL Hgb (12.0-16.0) g/dL Hct (36-46) % MCV (80-100) fL MCH (26-34) PG MCHC (30-36) % RDW (11.6-14.8) % Plt Count (150-400) X10^3/uL Neut % (Auto) (50-75) % Lymph % (Auto) (25-40) % [place] % (Auto) (3-14) % Eos % (Auto) (2-4) % Baso % (Auto) (0-2) % Neut # (Auto) (4586-0889) /uL Lymph # (Auto) (5018-9971) /uL [place] # (Auto) (0-900) /uL Eos # (Auto) (0-450) /uL Baso # (Auto) (0-100) /uL PT (10.1-12.7) SECONDS INR (0.9-1.3) APTT (26.4-36.2) SECONDS D-Dimer (<230) ng/mL Sodium 138 (137-145) mmol/L Potassium 3.5 (3.4-5.1) mmol/L Chloride 100 (98-107) mmol/L Carbon Dioxide 28 (22-32) mmol/L BUN 14 (7-17) mg/dL Creatinine 0.79 (0.52-1.04) mg/dL Estimated GFR > 60 (>60) mL/min BUN/Creatinine Ratio 17.7 (6-22) Glucose 210 H (80-110) mg/dL Calcium 8.5 (8.4-10.2) mg/dL Magnesium 2.0 (1.6-2.3) mg/dL Total Bilirubin 0.4 (0.2-1.3) mg/dL AST 34 (14-36) IU/L ALT 31 (<35) IU/L Alkaline Phosphatase 64 (38-126) U/L Total Creatine Kinase 123 119 (30-135) U/L CK-MB (CK-2) 1.11 2.47 H D (<2.37) ng/mL CK-MB (CK-2) Rel Index 0.9 L 2.1 (1.5-5.0) % Troponin I 0.039 H 0.115 H (0.01-0.034) ng/mL Total Protein 7.7 (6.3-8.2) g/dL Albumin 4.2 (3.5-5.0) g/dL Globulin 3.5 (1.7-4.1) g/dL Albumin/Globulin Ratio 1.2 (1.0-2.8) Lipase 61 (23-300) U/L SARS-CoV-2 (PCR) (Negative) 01/10/22 01/10/22 01/10/22 Range/Units 10:12 17:35 21:20 WBC (4.5-11.0) X10^3/uL RBC (4.0-5.2) X10^6/uL Hgb (12.0-16.0) g/dL Hct (36-46) % MCV (80-100) fL MCH (26-34) PG MCHC (30-36) % RDW (11.6-14.8) % Plt Count (150-400) X10^3/uL Neut % (Auto) (50-75) % Lymph % (Auto) (25-40) % [place]k % (Auto) (3-14) % Eos % (Auto) (2-4) % Baso % (Auto) (0-2) % Neut # (Auto) (3407-2044) /uL Lymph # (Auto) (0780-9400) /uL [place] # (Auto) (0-900) /uL Eos # (Auto) (0-450) /uL Baso # (Auto) (0-100) /uL PT (10.1-12.7) SECONDS INR (0.9-1.3) APTT 33 138 H* D (26.4-36.2) SECONDS D-Dimer (<230) ng/mL Sodium (137-145) mmol/L Potassium (3.4-5.1) mmol/L Chloride (98-107) mmol/L Carbon Dioxide (22-32) mmol/L BUN (7-17) mg/dL Creatinine (0.52-1.04) mg/dL Estimated GFR (>60) mL/min BUN/Creatinine Ratio (6-22) Glucose (80-110) mg/dL Calcium (8.4-10.2) mg/dL Magnesium (1.6-2.3) mg/dL Total Bilirubin (0.2-1.3) mg/dL AST (14-36) IU/L ALT (<35) IU/L Alkaline Phosphatase (38-126) U/L Total Creatine Kinase (30-135) U/L CK-MB (CK-2) (<2.37) ng/mL CK-MB (CK-2) Rel Index (1.5-5.0) % Troponin I 0.524 H* (0.01-0.034) ng/mL Total Protein (6.3-8.2) g/dL Albumin (3.5-5.0) g/dL Globulin (1.7-4.1) g/dL Albumin/Globulin Ratio (1.0-2.8) Lipase (23-300) U/L SARS-CoV-2 (PCR) (Negative) 01/10/22 01/11/22 01/11/22 Range/Units 23:38 05:50 05:50 WBC (4.5-11.0) X10^3/uL RBC (4.0-5.2) X10^6/uL Hgb (12.0-16.0) g/dL Hct (36-46) % MCV (80-100) fL MCH (26-34) PG MCHC (30-36) % RDW (11.6-14.8) % Plt Count (150-400) X10^3/uL Neut % (Auto) (50-75) % Lymph % (Auto) (25-40) % [place]k % (Auto) (3-14) % Eos % (Auto) (2-4) % Baso % (Auto) (0-2) % Neut # (Auto) (9266-8512) /uL Lymph # (Auto) (0713-7063) /uL [place] # (Auto) (0-900) /uL Eos # (Auto) (0-450) /uL Baso # (Auto) (0-100) /uL PT (10.1-12.7) SECONDS INR (0.9-1.3) APTT 88 H* D 65 H D (26.4-36.2) SECONDS D-Dimer 211 (<230) ng/mL Sodium (137-145) mmol/L Potassium (3.4-5.1) mmol/L Chloride (98-107) mmol/L Carbon Dioxide (22-32) mmol/L BUN (7-17) mg/dL Creatinine (0.52-1.04) mg/dL Estimated GFR (>60) mL/min BUN/Creatinine Ratio (6-22) Glucose (80-110) mg/dL Calcium (8.4-10.2) mg/dL Magnesium (1.6-2.3) mg/dL Total Bilirubin (0.2-1.3) mg/dL AST (14-36) IU/L ALT (<35) IU/L Alkaline Phosphatase (38-126) U/L Total Creatine Kinase (30-135) U/L CK-MB (CK-2) (<2.37) ng/mL CK-MB (CK-2) Rel Index (1.5-5.0) % Troponin I (0.01-0.034) ng/mL Total Protein (6.3-8.2) g/dL Albumin (3.5-5.0) g/dL Globulin (1.7-4.1) g/dL Albumin/Globulin Ratio (1.0-2.8) Lipase (23-300) U/L SARS-CoV-2 (PCR) (Negative) 01/11/22 01/11/22 01/11/22 Range/Units 06:00 06:00 11:25 WBC (4.5-11.0) X10^3/uL RBC (4.0-5.2) X10^6/uL Hgb 13.3 (12.0-16.0) g/dL Hct 39.5 (36-46) % MCV (80-100) fL MCH (26-34) PG MCHC (30-36) % RDW (11.6-14.8) % Plt Count (150-400) X10^3/uL Neut % (Auto) (50-75) % Lymph % (Auto) (25-40) % [place]k % (Auto) (3-14) % Eos % (Auto) (2-4) % Baso % (Auto) (0-2) % Neut # (Auto) (9901-2366) /uL Lymph # (Auto) (8300-1090) /uL [place] # (Auto) (0-900) /uL Eos # (Auto) (0-450) /uL Baso # (Auto) (0-100) /uL PT (10.1-12.7) SECONDS INR (0.9-1.3) APTT 72 H (26.4-36.2) SECONDS D-Dimer (<230) ng/mL Sodium (137-145) mmol/L Potassium (3.4-5.1) mmol/L Chloride (98-107) mmol/L Carbon Dioxide (22-32) mmol/L BUN (7-17) mg/dL Creatinine (0.52-1.04) mg/dL Estimated GFR (>60) mL/min BUN/Creatinine Ratio (6-22) Glucose (80-110) mg/dL Calcium (8.4-10.2) mg/dL Magnesium (1.6-2.3) mg/dL Total Bilirubin (0.2-1.3) mg/dL AST (14-36) IU/L ALT (<35) IU/L Alkaline Phosphatase (38-126) U/L Total Creatine Kinase (30-135) U/L CK-MB (CK-2) (<2.37) ng/mL CK-MB (CK-2) Rel Index (1.5-5.0) % Troponin I 0.424 H* (0.01-0.034) ng/mL Total Protein (6.3-8.2) g/dL Albumin (3.5-5.0) g/dL Globulin (1.7-4.1) g/dL Albumin/Globulin Ratio (1.0-2.8) Lipase (23-300) U/L SARS-CoV-2 (PCR) (Negative) 01/11/22 01/12/22 01/12/22 Range/Units 16:45 05:45 05:56 WBC (4.5-11.0) X10^3/uL RBC (4.0-5.2) X10^6/uL Hgb 13.5 (12.0-16.0) g/dL Hct 39.3 (36-46) % MCV (80-100) fL MCH (26-34) PG MCHC (30-36) % RDW (11.6-14.8) % Plt Count (150-400) X10^3/uL Neut % (Auto) (50-75) % Lymph % (Auto) (25-40) % Sau[place] % (Auto) (3-14) % Eos % (Auto) (2-4) % Baso % (Auto) (0-2) % Neut # (Auto) (3086-7613) /uL Lymph # (Auto) (4032-7783) /uL Sauk # (Auto) (0-900) /uL Eos # (Auto) (0-450) /uL Baso # (Auto) (0-100) /uL PT (10.1-12.7) SECONDS INR (0.9-1.3) APTT 57 H D (26.4-36.2) SECONDS D-Dimer (<230) ng/mL Sodium (137-145) mmol/L Potassium (3.4-5.1) mmol/L Chloride (98-107) mmol/L Carbon Dioxide (22-32) mmol/L BUN (7-17) mg/dL Creatinine (0.52-1.04) mg/dL Estimated GFR (>60) mL/min BUN/Creatinine Ratio (6-22) Glucose (80-110) mg/dL Calcium (8.4-10.2) mg/dL Magnesium (1.6-2.3) mg/dL Total Bilirubin (0.2-1.3) mg/dL AST (14-36) IU/L ALT (<35) IU/L Alkaline Phosphatase (38-126) U/L Total Creatine Kinase 116 (30-135) U/L CK-MB (CK-2) 2.77 H (<2.37) ng/mL CK-MB (CK-2) Rel Index 2.4 (1.5-5.0) % Troponin I 0.296 H* (0.01-0.034) ng/mL Total Protein (6.3-8.2) g/dL Albumin (3.5-5.0) g/dL Globulin (1.7-4.1) g/dL Albumin/Globulin Ratio (1.0-2.8) Lipase (23-300) U/L SARS-CoV-2 (PCR) (Negative) 01/12/22 01/12/22 Range/Units 05:56 13:00 WBC (4.5-11.0) X10^3/uL RBC (4.0-5.2) X10^6/uL Hgb (12.0-16.0) g/dL Hct (36-46) % MCV (80-100) fL MCH (26-34) PG MCHC (30-36) % RDW (11.6-14.8) % Plt Count (150-400) X10^3/uL Neut % (Auto) (50-75) % Lymph % (Auto) (25-40) % Sau[place] % (Auto) (3-14) % Eos % (Auto) (2-4) % Baso % (Auto) (0-2) % Neut # (Auto) (8258-4305) /uL Lymph # (Auto) (5024-2719) /uL Sauk # (Auto) (0-900) /uL Eos # (Auto) (0-450) /uL Baso # (Auto) (0-100) /uL PT (10.1-12.7) SECONDS INR (0.9-1.3) APTT (26.4-36.2) SECONDS D-Dimer (<230) ng/mL Sodium 138 (137-145) mmol/L Potassium 3.9 (3.4-5.1) mmol/L Chloride 103 (98-107) mmol/L Carbon Dioxide 28 (22-32) mmol/L BUN 15 (7-17) mg/dL Creatinine 0.61 (0.52-1.04) mg/dL Estimated GFR > 60 (>60) mL/min BUN/Creatinine Ratio 24.6 H (6-22) Glucose 101 D (80-110) mg/dL Calcium 8.5 (8.4-10.2) mg/dL Magnesium (1.6-2.3) mg/dL Total Bilirubin (0.2-1.3) mg/dL AST (14-36) IU/L ALT (<35) IU/L Alkaline Phosphatase (38-126) U/L Total Creatine Kinase 109 (30-135) U/L CK-MB (CK-2) 1.76 (<2.37) ng/mL CK-MB (CK-2) Rel Index 1.6 (1.5-5.0) % Troponin I 0.273 H* (0.01-0.034) ng/mL Total Protein (6.3-8.2) g/dL Albumin (3.5-5.0) g/dL Globulin (1.7-4.1) g/dL Albumin/Globulin Ratio (1.0-2.8) Lipase (23-300) U/L SARS-CoV-2 (PCR) Positive H (Negative) Point of Care Testing Glucose POC 93 MDM Narrative Medical decision making narrative: Chest x-ray is unremarkable. Has a heart score of 6. Has known coronary artery disease. Is now asymptomatic after nitro and morphine. EKG has nonspecific changes. No prior EKGs for comparison. Initial troponin greater than 99th percentile. Will repeat troponin and disposition based on result of this. Care turned over to Dr. Dumont to follow-up and disposition. [0700] (Tim) Patient received in sign out from [Beryl]. I have reviewed the clinical course and performed an independent history and physical exam. 1730 - patient continues to be symptom free. [facility] ([facility]) accepts, no beds, keep on heparin tonight. NPO after midnight. Likely bed tomorrow 1800 -patient signed out to Dr. Dean at shift change, 01/10/22 2100 Dianne: Patient signed out to myself by Dr. Dumont. Patient has been asymptomatic with nitro and morphine topically. Patient had ST depression/inversion but no acute elevation. Patient seen independently evaluated by myself. She developed left arm pain in the department repeat EKG shows no dynamic changes appears similar to 1st EKG. Patient's nitro paste had been removed and was replaced and was re-evaluated after this patient continues to have pain but actually states it did not resolve until after she received morphine we will repeat morphine as well. If pain is persisting will re-contact cardiology start nitro drip. Patient did not have her home medications today. Attempting to obtain her dosages to restart these to help with blood pressure control and restarting statin At this time plan is currently for patient to transfer to [facility] with Dr. Stafford hopefully tomorrow for cardiac catheterization she is COVID positive with a troponin went from 0.039 to 0.115. Patient case was discussed with Dr. Stafford with cardiology. Troponin is on repeat was positive. Patient chest pain resolved after nitro re-initiated and given dose of morphine. Will add nitro gtt if becomes more persistent or changes. Goal of transfer for cardiac cath. Still no beds available regionally but hopefully during daytime hours today. Patient signed out to Dr. Dumont while awaiting transfer. [0700 01/11] (Tim) Patient received back in sign out from [Dianne]. I have reviewed the clinical course and new labs. Resting comfortably, still working on transfer. Care was assumed from Dr. Dean at change of shift. She was on heparin drip with non-STEMI. She received aspirin on day 1. She had a brief episode, 3-5 minutes, of left chest pain prior to me entering the room. She is currently pain-free. Her vital stable. A 30 EKG indicates normal sinus rhythm with rate of 60 beats per minute. She has LVH, all 3 of the EKGs indicate lateral ischemic changes. Her troponin is currently declining. I discussed the situation again with the on-call division order analyst, Dr. Maguire. There are no beds available in multiple facilities. We continue to await transfer. Aspirin was repeated. She was given a dose Plavix, and he does of Metoprolol 12.5 mg p.o.-Jamir FELDER01/12/22@09:50 When I last visit the patient she had just gone to another episode of chest pain. She was diaphoretic. In addition the heparin drip, I renewed the aspirin, gave Lopressor and Plavix. She is currently pain-free and feeling much better. I was able discuss her situation with Dr. Marshall Glaser, hospitalist at [facility]. He is quite understanding of the situation. There is no beds immediately available. Dr. Riojas, the ER doctor at [facility] became involved. He agreed to accept the patient as an ER to ER transfer. She will at least be near a lab nurse, awaiting admission and cardiac evaluation, possible catheterization. She was COVID positive at the time of admission, 3 days ago. She is not coughing, she has no fever or headache. Her chest x-ray is clear. COVID-19 testing will be repeated prior to transfer.-Jamir FELDER 01/12/22@13:18. Discharge Plan Departure Patient Disposition: [facility] Clinical Impression: Non-STEMI (non-ST elevated myocardial infarction), Chest pain, COVID-19 virus infection Prescriptions: No Action allopurinol 300 mg Tablet 300 mg PO DAILY furosemide 20 mg Tablet 20 mg PO DAILY aspirin 81 mg Capsule 81 mg PO DAILY atorvastatin 40 mg Tablet 40 mg PO BEDTIME isosorbide mononitrate 30 mg Tablet Extended Release 24 Hr 30 mg PO DAILY cyanocobalamin (vitamin B-12) 1,000 mcg/mL Solution 1,000 mcg IM QMONTH telmisartan 40 mg Tablet 40 mg PO DAILY nitroglycerin 0.4 mg Tablet, Sublingual 0.4 mg SUBLINGUAL Q5-15M PRN (Reason: Chest Pain) Rx Instructions: do not exceed 3 doses per episode amlodipine 5 mg Tablet 5 mg PO DAILY potassium chloride 2.5 mEq Tablet 10 meq PO DAILY
[2022-01-10 05:34] LABS: Add Manual Diff / Slide Review NO; Basophils Absolute Auto 0 /uL (0-100); Basophils Percent Auto 0.4 % (0-2); Eosinophils Absolute Auto 100 /uL (0-450); Hemoglobin 13.5 g/dL (12.0-16.0); Lymphocytes Absolute Auto 1600 /uL (1100-4500); Lymphocytes Percent Auto 17.1 % (25-40); Mean Corpuscular HGB Conc 33.9 % (30-36); Mean Corpuscular Hemoglobin 31.3 PG (26-34); Mean Corpuscular Volume 92.3 fL (80-100); Monocytes Absolute Auto 400 /uL (0-900); Monocytes Percent Auto 4.6 % (3-14); Neutrophils Absolute Auto 7100 /uL (1500-7000); Neutrophils Percent Auto 76.9 % (50-75); Platelet Count 211 X10^3/uL (150-400); Red Blood Cell Count 4.33 X10^6/uL (4.0-5.2); Red Cell Distribution Width 14.3 % (11.6-14.8); White Blood Cell Count 9.2 X10^3/uL (4.5-11.0)
[2022-01-10] MEDS: NITROGLYCERIN OINT 1 INCH/GM OINT...G. 0.5 INCH TOP ×2 (05:39→20:52)
[2022-01-10] MEDS: SODIUM CHLORIDE 0.9% 1,000 ML 125 ML IV (05:40)
[2022-01-10] MEDS: ASPIRIN 81 MG CHEW TAB 324 MG PO ×2 (05:40→10:17)
[2022-01-10] MEDS: MORPHINE 4 MG/ML INJ IV ×2 (06:15→21:17)
[2022-01-10 06:17] LABS: Alanine Aminotransferase 31 IU/L (<35); Albumin 4.2 g/dL (3.5-5.0); Albumin Globulin Ratio 1.2 (1.0-2.8); Alkaline Phosphatase 64 U/L (38-126); Aspartate Aminotransferase 34 IU/L (14-36); BUN Creatinine Ratio 17.7 (6-22); Bilirubin Total 0.4 mg/dL (0.2-1.3); Blood Urea Nitrogen 14 mg/dL (7-17); Calcium 8.5 mg/dL (8.4-10.2); Carbon Dioxide 28 mmol/L (22-32); Chloride 100 mmol/L (98-107); Estimated Glomerular Filt Rate > 60 mL/min (>60); Globulin 3.5 g/dL (1.7-4.1); Glucose 210 mg/dL (80-110); HEMOLYSIS < 15 (0-50); Potassium 3.5 mmol/L (3.4-5.1); Sodium 138 mmol/L (137-145); Total Protein 7.7 g/dL (6.3-8.2)
[2022-01-10 06:18] LABS: Creatine Kinase 123 U/L (30-135); Lipase 61 U/L (23-300)
[2022-01-10 06:31] LABS: Troponin I 0.039 ng/mL (0.01-0.034)
[2022-01-10 06:33] LABS: CKMB % Relative Index 0.9 % (1.5-5.0); Creatine Kinase MB 1.11 ng/mL (<2.37)
[2022-01-10 07:01] LABS: COVID19 -Nasal RAPID POSITIVE (Negative)
[2022-01-10 08:44] LABS: Creatine Kinase 119 U/L (30-135)
[2022-01-10 08:56] LABS: Troponin I 0.115 ng/mL (0.01-0.034)
[2022-01-10 08:59] LABS: CKMB % Relative Index 2.1 % (1.5-5.0); Creatine Kinase MB 2.47 ng/mL (<2.37)
[2022-01-10] MEDS: HEPARIN DRIP 25,000 UNIT/500 ML IV.SOLN 16.329 UNIT IV (10:15)
[2022-01-10] MEDS: HEPARIN 5,000 UNIT/ML VIAL 4000 UNIT IV (10:15)
[2022-01-10 10:17] LABS: INR 1.1 (0.9-1.3); Prothrombin Time 12.1 SECONDS (10.1-12.7)
[2022-01-10 10:20] LABS: PTT Partial Thromboplastin Tim 30 SECONDS (26.4-36.2)
[2022-01-10 11:04] LABS: PTT Partial Thromboplastin Tim 33 SECONDS (26.4-36.2)
[2022-01-10 18:32] LABS: PTT Partial Thromboplastin Tim 138 SECONDS (26.4-36.2)
--- NOTE | 2022-01-10 20:53 | PC.NURSE ---
pt moved to inpatient bed. pt got up from [facility] and sat on chair, beds switched out and patient moved back into patient bed. pt soon began to c/o off chest pain that radiated down left arm and diaphoresis. notified immediately. RT called for STAT EKG. Nitro paste ordered and placed on pt
--- NOTE | 2022-01-10 21:06 | PC.NURSE ---
Pt experiencing sudden left arm pain. EKG ordered/RT called, provider notified and Nitro paste applied. Pt hypertensive
[2022-01-10] MEDS: ATORVASTATIN 20 MG TABLET 80 MG PO (22:07)
[2022-01-10 22:49] LABS: Troponin I 0.524 ng/mL (0.01-0.034)
[2022-01-11] VITALS (44 sets, daily range): BP systolic 121–170; BP diastolic 61–88; PULSE 50–91; RESP 9–35; O2SAT 94–100
[2022-01-11 00:12] LABS: PTT Partial Thromboplastin Tim 88 SECONDS (26.4-36.2)
--- NOTE | 2022-01-11 04:52 | DI.ECHO.S_ITS ---
[facility]---------+ [facility] +---------+ : : [address] : [place] : : : : [id number] : : : : Phone: [phone]+ Echocardiogram Report + + :Name: NATALI TAYLOR Study Date: 01/11/2022 Height: 60 in : :[facility] ReadingLocation: Weight: 150 lb : : Gender: Female BSA: 1.7 m2 : :: 1955 Age: 66 yrs BP: 142/62 mmHg: :Reason For Study: NSTEMI, COVID POSITIVE : :Ordering Physician: OLE, : :IRIS Performed By: Sissy Chicas : :Referring: IRIS HANDY : + + Interpretation Summary 1) Normal left ventricular size and thickness with low normal systolic function (EF 50-55%). 2) Apical inferoseptum, apical anteroseptum, and apical inferior wall are severely hypokinetic to akientic. 3) Normal right ventricular size with mildly reduced function. 4) No significant valvular abnormalities. 5) No prior Echo available for comparison. Procedure: A two-dimensional transthoracic echocardiogram with color flow and Doppler was performed. The study quality was technically adequate. There is no prior echocardiogram noted for this patient. The patient was in sinus bradycardia with heart rates between 47-56 bpm during the exam. Left Ventricle: The left ventricle is normal in size and wall thickness. The ejection fraction is estimated to be 50-55%. Apical inferoseptum, apical anteroseptum, and apical inferior wall are severely hypokinetic to akientic. Right Ventricle: The right ventricle is normal size. Right ventricular systolic function is mildly reduced. Atria: The left atrium is severely dilated. Right atrial size is normal. There is no Doppler evidence for an interatrial shunt. Mitral Valve: The mitral valve leaflets appear mildly thickened, but open well. There is trace mitral regurgitation. Aortic Valve: The aortic valve is trileaflet. The aortic valve opens well. The aortic valve is mildly calcified. There is no aortic valve stenosis. No aortic regurgitation is present. Tricuspid Valve: The tricuspid valve is normal in structure and function. There is mild tricuspid regurgitation. Pulmonic Valve: The pulmonic valve leaflets are thin and pliable; valve motion is normal. There is mild pulmonic regurgitation. Great Vessels: The aortic root is normal size. The dimensions of the ascending aorta are normal. The IVC is of normal diameter and collapses greater than 50% with a sniff. This suggests a low right atrial pressure of 3 mm Hg. Pericardium/ Pleura There is no pericardial effusion. There is no pleural effusion. MMode/2D Measurements & Calculations LVIDd: 4.8 cm LVOT diam: 2.0 cm LVIDs: 3.2 cm Ao root diam: 2.6 cm FS: 34.1 % asc Aorta Diam: 3.1 cm EPSS: 1.0 cm Ao Arch Diam (Prox Trans): 2.0 cm IVSd: 0.79 cm LVPWd: 0.85 cm LV cooper. diameter/BSA (cm/m^2): 2.9 LV sys. diameter/BSA (cm/m^2): 1.9 LA A2 area: 25.3 cm2 RA long axis: 5.6 cm LA A4 area: 25.3 cm2 RA area: 18.0 cm2 LA length (vol): 6.2 cm RA vol: 48.6 ml LA vol: 88.0 ml RA : 29.4 ml/m2 LA vol index: 53.2 ml/m2 IVC diam: 1.5 cm RVD1 (basal): 3.5 cm RVD2 (mid): 3.0 cm TAPSE: 1.4 cm Doppler Measurements & Calculations Ao V2 max: 183.9 cm/sec LVOT Max Lauri: 89.4 cm/sec Ao V2 mean: 115.7 cm/sec LV V1 max P.2 mmHg Ao max P.5 mmHg LV V1 VTI: 21.4 cm Ao mean P.1 mmHg REYNALDO(I,D): 1.9 cm2 Ao V2 VTI: 35.2 cm REYNALDO(V,D): 1.5 cm2 sev ratio: 0.61 REYNALDO indexed to BSA (cm^2/m^2): 1.1 MV E max lauri: 75.9 cm/sec TR max lauri: 211.2 cm/sec MV A max lauri: 101.4 cm/sec TR max P.8 mmHg MV E/A: 0.75 PA V2 max: 104.4 cm/sec Med Peak E' Lauri: 5.7 cm/sec PA V2 mean: 64.9 cm/sec E/E' med: 13.3 PA mean P.9 mmHg Lat Peak E' Lauri: 9.6 cm/sec PA Accel Time: 0.10 sec E/E' lat: 7.9 E/e' average: 10.6 MV dec time: 0.29 sec SV(LVOT): 65.3 ml Reading Physician:10:57 AM
--- NOTE | 2022-01-11 05:42 | PC.NURSE ---
Pt denying any pain at this time.
[2022-01-11] MEDS: MORPHINE 2 MG/ML INJ IV (05:59)
[2022-01-11 06:12] LABS: PTT Partial Thromboplastin Tim 65 SECONDS (26.4-36.2)
[2022-01-11 06:12] LABS: Hematocrit 39.5 % (36-46); Hemoglobin 13.3 g/dL (12.0-16.0)
[2022-01-11 06:22] LABS: D Dimer 211 ng/mL (<230)
[2022-01-11 06:48] LABS: Troponin I 0.424 ng/mL (0.01-0.034)
--- NOTE | 2022-01-11 09:29 | PC.NURSE ---
faxed med list (from [facility]) allopurinol 300 mg - 1 daily asa 81 mg - 1 daily furosemide 20 mg - 1 daily cyanocobaline 1000 mcg/ml - 1 time month -- last 12/29/21 atorvastatin 40 mg - 1 daily nitroglycerine 0.4 mg - emergency prn (last filled 12/25/21) telmisartan 40 mg - 1 daily isosorbide monohydrate er 30 mg - 1 daily potassium chloride 10 meq - 1 daily amlodipine 5mg - 1 daily
[2022-01-11] MEDS: ASPIRIN EC 81 MG TABLET PO (10:01)
[2022-01-11] MEDS: ATORVASTATIN 20 MG TABLET 40 MG PO (10:02)
--- NOTE | 2022-01-11 10:04 | PC.NURSE ---
Pt resting in bed. receiving ECHO at this time. PO meds given per MAR. states she has no pain at this time. remains on cardiac monitoring. HR 53 and regular.
[2022-01-11 11:54] LABS: PTT Partial Thromboplastin Tim 72 SECONDS (26.4-36.2)
--- NOTE | 2022-01-11 13:51 | PC.NURSE ---
Late entry: Yesterday 01/10/2022 I was asked to place this patient on [facility] transfer list. Patient was accepted and is waiting for a bed for placement.
--- NOTE | 2022-01-11 14:16 | PC.NURSE ---
I called [facility] and talked to the slitting and shipping supervisor Kim about the potential for this patient to transfer. Kim stated they were trying to create room and to followup with them in 4 to 6 hours if I haven't heard from them in that time.
[2022-01-11 17:14] LABS: Creatine Kinase 116 U/L (30-135)
[2022-01-11 17:29] LABS: CKMB % Relative Index 2.4 % (1.5-5.0); Creatine Kinase MB 2.77 ng/mL (<2.37)
[2022-01-11 17:50] LABS: Troponin I 0.296 ng/mL (0.01-0.034)
[2022-01-11] MEDS: ATORVASTATIN 20 MG TABLET 80 MG PO (20:25)
--- NOTE | 2022-01-11 20:29 | PC.NURSE ---
spoke with provider, pt had 40mg of atrovastatin this morning at 1000. for full 80mg dose, only 40mg of night time dose was given. starting tomorrow, pt is to take only one dose of 80 at night time
[2022-01-12] VITALS (30 sets, daily range): BP systolic 130–170; BP diastolic 62–78; PULSE 50–68; RESP 11–32; TEMP 37.3; O2SAT 92–99
[2022-01-12] MEDS: HEPARIN DRIP 25,000 UNIT/500 ML IV.SOLN 12.3 UNIT IV (02:55)
[2022-01-12] MEDS: MORPHINE 2 MG/ML INJ IV (03:27)
[2022-01-12 06:18] LABS: Hematocrit 39.3 % (36-46); Hemoglobin 13.5 g/dL (12.0-16.0)
[2022-01-12 06:53] LABS: BUN Creatinine Ratio 24.6 (6-22); Blood Urea Nitrogen 15 mg/dL (7-17); Calcium 8.5 mg/dL (8.4-10.2); Carbon Dioxide 28 mmol/L (22-32); Chloride 103 mmol/L (98-107); Creatine Kinase 109 U/L (30-135); Estimated Glomerular Filt Rate > 60 mL/min (>60); Glucose 101 mg/dL (80-110); HEMOLYSIS 40 (0-50); Potassium 3.9 mmol/L (3.4-5.1); Sodium 138 mmol/L (137-145)
[2022-01-12 07:01] LABS: PTT Partial Thromboplastin Tim 57 SECONDS (26.4-36.2)
[2022-01-12 07:07] LABS: Creatine Kinase MB 1.76 ng/mL (<2.37)
[2022-01-12 07:09] LABS: Troponin I 0.273 ng/mL (0.01-0.034)
[2022-01-12 07:32] LABS: CKMB % Relative Index 1.6 % (1.5-5.0)
[2022-01-12] MEDS: CLOPIDOGREL 75 MG TABLET PO (10:24)
[2022-01-12] MEDS: ASPIRIN EC 81 MG TABLET PO (10:24)
[2022-01-12] MEDS: METOPROLOL IR 25 MG TABLET 12.5 MG PO (10:25)
[2022-01-12] MEDS: ISOSORBIDE MONONITRATE ER 30 MG TABLET PO (12:08)
[2022-01-12] MEDS: AMLODIPINE 5 MG TABLET PO (12:08)
[2022-01-12] MEDS: POTASSIUM CHLORIDE 10 MEQ TAB PO (12:08)
[2022-01-12] MEDS: FUROSEMIDE 20 MG TABLET PO (12:08)
[2022-01-12] MEDS: LOSARTAN 50 MG TABLET PO (12:09)
[2022-01-12 14:09] LABS: COVID19 - ADMIT (NP swab/PCR) POSITIVE (Negative)
== END 2022-01-12 13:40 | disposition short-term general hospital (02) ==
PROVIDERS: Emergency Medicine; Emergency Provider Emergency Medicine
DX: I21.4 Non-ST elevation (NSTEMI) myocardial infarction (principal); R07.9 Chest pain, unspecified; U07.1 COVID-19; Z86.79 Personal history of other diseases of the circulatory system; Z95.5 Presence of coronary angioplasty implant and graft
CPT/HCPCS: 36415; 71045; 80048; 80053; 82550; 82553; 82962; 83690; 83735; 84484; 85014; 85018; 85025; 85379; 85610; 85730; 87635; 93005; 93010; 93306; 96365; 96366; 96375; 96376; 99284; 99285; C9803; J1644; J2270